=== PATIENT | male | born 1955 | race Caucasian/White ===

== ENCOUNTER 2018-07-22 06:50 | Inpatient (IN) | payer MEDICAID ==
[~2018-07-22] VITALS: Ht 177.8 cm; Wt 101.6 kg
[2018-07-22] MEDS ORDERED: SODIUM CHLORIDE 0.9% 1,000 ML IV ONE (08:53)
[2018-07-22 09:10] LABS: CHLORIDE 102 mEq/L (98-107); HEMATOCRIT. 36.2 % (42.0-52.0); MEAN CORPUSCULAR HEMOGLOBIN 28.9 pg (28.0-32.0); MEAN CORPUSCULAR VOLUME 87.4 fL (80.0-94.0); MEAN PLATELET VOLUME 9.9 fl (7.4-10.4); PLATELET 81 x1000/uL (130-400); RED BLOOD CELL COUNT 4.14 mill/uL (4.7-6.1); RED CELL DISTRIBUTION WIDTH 17.5 % (11.6-14.6)
[2018-07-22 09:13] LABS: INR 1.4; PROTHROMBIN TIME 13.6 sec (9.1-11.1)
[2018-07-22 09:14] LABS: ETHANOL BLOOD < 10 mg/dL
[2018-07-22] MEDS ORDERED: POTASSIUM CHLORIDE INJ 40 MEQ in DEXT 5% WATER 500 ML IV SCH (10:00)
[2018-07-22 10:06] LABS: PLATELET ESTIMATE DECREASED
[2018-07-22 10:12] LABS: CREATINE KINASE 218 IU/L (39-308)
[2018-07-22 10:25] LABS: CLARITY URINE CLEAR (CLEAR); COLOR URINE DARK YELLOW (YELLOW); KETONES URINE NEGATIVE (NEGATIVE); LEUKOCYTE ESTERASE URINE 1+ (NEGATIVE); NITRITE URINE NEGATIVE (NEGATIVE); OCCULT BLOOD URINE 3+ (NEGATIVE); PH URINE 5.5 (4.5-8.0); PROTEIN URINE 1+ (NEGATIVE); SPECIFIC GRAVITY URINE 1.025 (1.005-1.030)
[2018-07-22] MEDS ORDERED: ASPIRIN 81MG TABLET PO ONE (10:30)
[2018-07-22 10:39] LABS: *AMPHETAMINES SCREEN URINE NEGATIVE (NEGATIVE); *BARBITURATES SCREEN URINE NEGATIVE (NEGATIVE); *BENZODIAZEPINES SCREEN URINE NEGATIVE (NEGATIVE); *COCAINE SCREEN URINE NEGATIVE (NEGATIVE); METHADONE URINE SCREEN NEGATIVE (NEGATIVE)
[2018-07-22 10:40] LABS: CANNABINOID URINE SCREEN NEGATIVE (NEGATIVE); OPIATES URINE SCREEN PRESUMTIVE POSITIVE (NEGATIVE); PHENCYCLIDINE URINE SCREEN NEGATIVE (NEGATIVE)
[2018-07-22] MEDS ORDERED: ENOXAPARIN 80MG/0.8ML SYR SUBCUT ONE (10:45)
[2018-07-22] MEDS ORDERED: DIPHENHYDRAMINE 50MG/ML VIAL IV PRN (11:00)
[2018-07-22] MEDS ORDERED: GUAIFENESIN 200MG/10ML SUGAR FREE UDC PO PRN (11:00)
[2018-07-22] MEDS ORDERED: CLONIDINE 0.1MG TABLET PO PRN (11:00)
[2018-07-22] MEDS ORDERED: ONDANSETRON HCL 4MG/2ML INJ IV PRN (11:00)
[2018-07-22] MEDS ORDERED: MAGNESIUM/ALUMINUM HYDROXIDE/SIMETHICONE 30ML UDC PO PRN (11:00)
[2018-07-22 15:07] LABS: CREATINE KINASE MB FRACTION 8.2 ng/mL (0.5-3.6)
[2018-07-22] MEDS ORDERED: ACETAMINOPHEN 650MG SUPP PR NR (15:30)
[2018-07-22] MEDS ORDERED: SODIUM CHLORIDE 0.9% 1,000 ML IV SCH (15:30)
[2018-07-22] MEDS ORDERED: PIPERACILLIN SODIUM/TAZOBACTAM 4.5 G in DEXT 5% WATER 100 ML IV SCH (16:00)
[2018-07-22] MEDS: IPRATROPIUM/ALBUTEROL 0.5-3(2.5)MG/3ML NEB INH PRN (16:05)
[2018-07-22 17:52] LABS: HEPATITIS B SURFACE ANTIGEN NEGATIVE
[2018-07-22 18:22] LABS: HEPATITIS A AB IGM NEGATIVE (NEGATIVE)
[2018-07-22 19:00] LABS: TOTAL IRON BINDING CAPACITY 256 ug/dL (250-450)
[2018-07-22 19:23] LABS: FERRITIN 121 ng/mL (22-322)
[2018-07-22 19:25] LABS: FOLIC ACID (FOLATE) SERUM >20 ng/mL ng/mL (>5.38)
[2018-07-22 19:36] LABS: VITAMIN B12 SERUM 280 pg/mL (211-911)
[2018-07-22] MEDS: MORPHINE SULFATE 4 MG/ML CPJ (NOT FOR IM USE) IV PRN (20:45)
[2018-07-22 22:19] LABS: CREATINE KINASE MB FRACTION 9.6 ng/mL (0.5-3.6)
[2018-07-22 22:20] VITALS: BP 115/49
[2018-07-23] VITALS (62 sets, daily range): BP systolic 66–191; BP diastolic 34–115
[2018-07-23 00:56] LABS: BG BASE EXCESS -12.2 mmol/L (-2.0-2.0); BG CARBOXYHEMOGLOBIN 0.5 % (0.5-1.5); BG DEOXYHEMOGLOBIN 0.4 % (0.0-5.0); BG FRACTION INSPIRED OXYGEN 100; BG HCO3 ACT 13.8 mmol/L (22.0-26.0); BG METHEMOGLOBIN 0.4 % (0.0-1.5); BG OXYGEN SATURATION 99.6 % (92.0-98.5); BG OXYHEMOGLOBIN 98.7 % (94.0-97.0); BG PCO2 32.3 mmHg (35.0-45.0); BG PO2 334.9 mmHg (75.0-100.0); BG SAMPLE SITE LEFT RADIAL; BG TOTAL HEMOGLOBIN 12.9 g/dL (12.0-18.0); BG VENT MODE MASK - SIMPLE
[2018-07-23] MEDS ORDERED: SODIUM BICARBONATE 8.4% 1 MEQ/ML 50ML SYR IV ONE (01:11)
[2018-07-23] MEDS ORDERED: VANCOMYCIN 1500MG in DEXTROSE 5% WATER 250ML IV SCH (02:00)
[2018-07-23 06:56] LABS: CHLORIDE 111 mEq/L (98-107)
[2018-07-23 07:05] LABS: LDL CHOLESTEROL 39 mg/dL (5-100)
[2018-07-23 07:06] LABS: CREATINE KINASE 452 IU/L (39-308); HDL CHOLESTEROL 14 mg/dL (40-59)
[2018-07-23 07:36] LABS: HEMATOCRIT. 36.4 % (42.0-52.0); HEMOGLOBIN. 11.8 g/dL (14.0-18.0); MEAN CORPUSCULAR HEMOGLOBIN 28.8 pg (28.0-32.0); MEAN CORPUSCULAR VOLUME 88.9 fL (80.0-94.0); RED BLOOD CELL COUNT 4.09 mill/uL (4.7-6.1); RED CELL DISTRIBUTION WIDTH 17.4 % (11.6-14.6)
[2018-07-23 07:48] LABS: BG BASE EXCESS -2.9 mmol/L (-2.0-2.0); BG DEOXYHEMOGLOBIN 6.6 % (0.0-5.0); BG FRACTION INSPIRED OXYGEN 32; BG HCO3 ACT 18.1 mmol/L (22.0-26.0); BG METHEMOGLOBIN 0.2 % (0.0-1.5); BG OXYGEN SATURATION 93.4 % (92.0-98.5); BG OXYHEMOGLOBIN 93.2 % (94.0-97.0); BG PH 7.532 (7.350-7.450); BG PO2 62.8 mmHg (75.0-100.0); BG SAMPLE SITE RIGHT BRACHIAL; BG VENT MODE NASAL CANNULA
[2018-07-23] MEDS ORDERED: METOPROLOL TARTRATE 25MG TABLET PO SCH (09:00)
[2018-07-23] MEDS: PROPOFOL 10MG/ML 100ML 100 ML IV PRN ×3 (09:53→20:49)
[2018-07-23] MEDS ORDERED: HYDRALAZINE 20MG/ML VIAL IV PRN (10:00)
[2018-07-23 10:16] LABS: BG BASE EXCESS -7.1 mmol/L (-2.0-2.0); BG CARBOXYHEMOGLOBIN 0.4 % (0.5-1.5); BG DEOXYHEMOGLOBIN 1.8 % (0.0-5.0); BG FRACTION INSPIRED OXYGEN 100; BG HCO3 ACT 19.2 mmol/L (22.0-26.0); BG METHEMOGLOBIN 0.5 % (0.0-1.5); BG OXYGEN SATURATION 98.2 % (92.0-98.5); BG OXYHEMOGLOBIN 97.3 % (94.0-97.0); BG PCO2 41.7 mmHg (35.0-45.0); BG PH 7.281 (7.350-7.450); BG SAMPLE SITE RIGHT BRACHIAL; BG TIDAL VOLUME(mL) 500 mL; BG TOTAL HEMOGLOBIN 12.8 g/dL (12.0-18.0); BG VENT MODE VENT - A/C; BG VENT RATE 14 set
[2018-07-23] MEDS: PANTOPRAZOLE SODIUM 40 MG/VIAL IV SCH (10:34)
[2018-07-23] MEDS: ENOXAPARIN 80MG/0.8ML SYR SUBCUT SCH ×2 (10:35→20:49)
[2018-07-23] MEDS: ASPIRIN 81MG TABLET PO SCH (10:38)
[2018-07-23 10:42] LABS: MEAN PLATELET VOLUME 11.5 fl (7.4-10.4); PLATELET 57 x1000/uL (130-400); PLATELET ESTIMATE DECREASED
[2018-07-23] MEDS: IPRATROPIUM/ALBUTEROL 0.5-3(2.5)MG/3ML NEB HHN SCH ×3 (11:00→21:45)
[2018-07-23] MEDS: PIPERACILLIN/TAZ 3.375G PREMIX 50 ML IV SCH ×2 (11:14→17:21)
[2018-07-23] MEDS: MORPHINE SULFATE 4 MG/ML CPJ (NOT FOR IM USE) IV PRN ×2 (11:38→17:22)
[2018-07-23] MEDS ORDERED: DILTIAZEM HCL 5MG/ML 5ML VIAL IV PRN (12:30)
[2018-07-23] MEDS ORDERED: DILTIAZEM HCL 5MG/ML 5ML VIAL IV SCH (12:41)
[2018-07-23] MEDS ORDERED: LORAZEPAM 2MG/ML CPJ IV PRN (13:00)
[2018-07-23] MEDS ORDERED: VECURONIUM BROMIDE 10 MG/VIAL IV ONE (13:17)
[2018-07-23] MEDS ORDERED: ETOMIDATE 2MG/ML 10ML VIAL IV ONE (13:17)
[2018-07-23] MEDS ORDERED: SODIUM CHLORIDE 0.9% 250 ML IV ONE (14:00)
[2018-07-23] MEDS ORDERED: DILTIAZEM HCL 125 MG in DEXT 5% WATER 100 ML IV PRN (14:15)
[2018-07-23] MEDS: SODIUM CHLORIDE 0.9% 1,000 ML IV SCH (14:21)
[2018-07-23] MEDS: VANCOMYCIN 1250MG in DEXTROSE 5% WATER 250ML IV SCH (14:33)
[2018-07-23] MEDS ORDERED: SODIUM CHLORIDE 0.9% 250 ML IV NR (15:00)
[2018-07-23] MEDS ORDERED: NOREPINEPHRINE 8 MG in DEXT 5% WATER 242 ML IV PRN (15:00)
[2018-07-23] MEDS: LEVETIRACETAM 500 MG in SODIUM CHLORIDE 0.9% 100 ML IV SCH ×2 (16:23→22:32)
[2018-07-23] MEDS: FENTANYL CITRATE/PF 500 MCG in SODIUM CHLORIDE 0.9% 40 ML IV PRN (19:54)
[2018-07-23] MEDS: METOPROLOL TARTRATE 25MG TABLET PO SCH (20:49)
[2018-07-23] MEDS ORDERED: LEVETIRACETAM 500 MG in SODIUM CHLORIDE 0.9% 100 ML IV SCH (21:00)
[2018-07-23] MEDS: NOREPINEPHRINE 32 MG in DEXT 5% WATER 468 ML IV PRN (22:30)
[2018-07-24] VITALS (96 sets, daily range): BP systolic 90–154; BP diastolic 53–92
[2018-07-24] MEDS: IPRATROPIUM/ALBUTEROL 0.5-3(2.5)MG/3ML NEB HHN SCH ×6 (01:15→20:57)
[2018-07-24] MEDS: VANCOMYCIN 1250MG in DEXTROSE 5% WATER 250ML IV SCH ×2 (02:27→15:09)
[2018-07-24] MEDS: PIPERACILLIN/TAZ 3.375G PREMIX 50 ML IV SCH ×2 (02:27→09:23)
[2018-07-24] MEDS: SODIUM CHLORIDE 0.9% 1,000 ML IV SCH ×2 (02:27→14:45)
[2018-07-24] MEDS: PROPOFOL 10MG/ML 100ML 100 ML IV PRN (02:31)
[2018-07-24 07:11] LABS: HEMATOCRIT. 32.7 % (42.0-52.0); HEMOGLOBIN. 10.6 g/dL (14.0-18.0); MEAN CORPUSCULAR HEMOGLOBIN 28.7 pg (28.0-32.0); MEAN CORPUSCULAR VOLUME 88.6 fL (80.0-94.0); RED CELL DISTRIBUTION WIDTH 17.6 % (11.6-14.6)
[2018-07-24 07:17] LABS: CHLORIDE 114 mEq/L (98-107)
[2018-07-24] MEDS ORDERED: LIDOCAINE HCL 1% 20ML VIAL (Pyxis) INJ ONE (07:19)
[2018-07-24 07:33] LABS: MEAN PLATELET VOLUME 11.5 fl (7.4-10.4); PLATELET 57 x1000/uL (130-400); PLATELET ESTIMATE DECREASED
[2018-07-24 07:50] LABS: BG BASE EXCESS -3.4 mmol/L (-2.0-2.0); BG DEOXYHEMOGLOBIN 0.8 % (0.0-5.0); BG FRACTION INSPIRED OXYGEN 60; BG METHEMOGLOBIN 0.3 % (0.0-1.5); BG OXYGEN SATURATION 99.2 % (92.0-98.5); BG OXYHEMOGLOBIN 98.9 % (94.0-97.0); BG PCO2 26.5 mmHg (35.0-45.0); BG PH 7.473 (7.350-7.450); BG PO2 183.5 mmHg (75.0-100.0); BG SAMPLE SITE RIGHT BRACHIAL; BG TIDAL VOLUME(mL) 500 mL; BG TOTAL HEMOGLOBIN 11.7 g/dL (12.0-18.0); BG VENT MODE VENT - A/C; BG VENT RATE 14 set
[2018-07-24] MEDS: ASPIRIN 81MG TABLET PO SCH (09:00)
[2018-07-24] MEDS: METOPROLOL TARTRATE 25MG TABLET PO SCH ×2 (09:00→21:00)
[2018-07-24] MEDS: ENOXAPARIN 80MG/0.8ML SYR SUBCUT SCH ×2 (09:00→21:00)
[2018-07-24] MEDS: PANTOPRAZOLE SODIUM 40 MG/VIAL IV SCH (09:21)
[2018-07-24] MEDS: LEVETIRACETAM 500 MG in SODIUM CHLORIDE 0.9% 100 ML IV SCH ×2 (09:23→22:05)
[2018-07-24] MEDS: THIAMINE HCL 100MG TABLET PO SCH ×2 (09:23→17:28)
[2018-07-24] MEDS: AMIODARONE HCL 200 MG TABLET PO SCH ×2 (10:26→22:05)
[2018-07-24] MEDS ORDERED: PROPOFOL 10MG/ML 100ML 100 ML IV PRN (10:45)
[2018-07-24] MEDS: FENTANYL CITRATE/PF 500 MCG in SODIUM CHLORIDE 0.9% 40 ML IV PRN ×2 (13:00→23:43)
[2018-07-24] MEDS: MIDAZOLAM HCL 50 MG in DEXTROSE 5% WATER 40 ML IV PRN ×3 (13:26→23:02)
[2018-07-24] MEDS ORDERED: AMIODARONE HCL 150 MG in DEXT 5% WATER 100 ML IV NR (17:00)
[2018-07-24] MEDS ORDERED: AMIODARONE HCL 900 MG in DEXT 5% WATER 482 ML IV PRN (17:15)
[2018-07-24] MEDS: CEFAZOLIN 2,000 MG in DEXT 5% WATER 100 ML IV SCH (17:18)
[2018-07-25] VITALS (95 sets, daily range): BP systolic 91–153; BP diastolic 42–100
[2018-07-25] MEDS: IPRATROPIUM/ALBUTEROL 0.5-3(2.5)MG/3ML NEB HHN SCH ×5 (00:34→20:13)
[2018-07-25] MEDS: CEFAZOLIN 2,000 MG in DEXT 5% WATER 100 ML IV SCH ×3 (01:07→17:36)
[2018-07-25] MEDS: NOREPINEPHRINE 32 MG in DEXT 5% WATER 468 ML IV PRN (02:57)
[2018-07-25] MEDS: MIDAZOLAM HCL 50 MG in DEXTROSE 5% WATER 40 ML IV PRN ×2 (04:28→11:02)
[2018-07-25 04:38] LABS: BG BASE EXCESS -5.3 mmol/L (-2.0-2.0); BG CARBOXYHEMOGLOBIN 0.3 % (0.5-1.5); BG DEOXYHEMOGLOBIN 2.9 % (0.0-5.0); BG FRACTION INSPIRED OXYGEN 60; BG HCO3 ACT 16.8 mmol/L (22.0-26.0); BG METHEMOGLOBIN 0.3 % (0.0-1.5); BG OXYGEN SATURATION 97.1 % (92.0-98.5); BG OXYHEMOGLOBIN 96.5 % (94.0-97.0); BG PCO2 24.8 mmHg (35.0-45.0); BG PEEP (cmH2O) 0 cmH2O; BG PIP 18 cmH2O; BG SAMPLE SITE LEFT RADIAL; BG TIDAL VOLUME(mL) 500 mL; BG TOTAL HEMOGLOBIN 13.8 g/dL (12.0-18.0); BG VENT MODE VENT - A/C; BG VENT RATE 14 set
[2018-07-25] MEDS: SODIUM CHLORIDE 0.9% 1,000 ML IV SCH (05:08)
[2018-07-25 06:19] LABS: HEMATOCRIT. 33.9 % (42.0-52.0); MEAN CORPUSCULAR HEMOGLOBIN 28.6 pg (28.0-32.0); MEAN CORPUSCULAR VOLUME 88.3 fL (80.0-94.0); RED BLOOD CELL COUNT 3.84 mill/uL (4.7-6.1); RED CELL DISTRIBUTION WIDTH 17.6 % (11.6-14.6)
[2018-07-25 06:32] LABS: CHLORIDE 113 mEq/L (98-107)
[2018-07-25 08:14] LABS: HIV SCREEN 4G Non Reactive (Non Reactive)
[2018-07-25] MEDS: LEVETIRACETAM 500 MG in SODIUM CHLORIDE 0.9% 100 ML IV SCH ×2 (08:48→21:36)
[2018-07-25] MEDS: PANTOPRAZOLE SODIUM 40 MG/VIAL IV SCH (08:48)
[2018-07-25] MEDS: THIAMINE HCL 100MG TABLET PO SCH ×2 (08:49→17:36)
[2018-07-25] MEDS: ENOXAPARIN 80MG/0.8ML SYR SUBCUT SCH (08:49)
[2018-07-25] MEDS: AMIODARONE HCL 200 MG TABLET PO SCH ×2 (08:49→21:36)
[2018-07-25] MEDS: METOPROLOL TARTRATE 25MG TABLET PO SCH ×2 (08:49→21:00)
[2018-07-25] MEDS: ASPIRIN 81MG TABLET PO SCH (08:49)
[2018-07-25] MEDS ORDERED: DEXTROSE 50% WATER 50ML SYRINGE IV PRN (09:45)
[2018-07-25] MEDS ORDERED: BLOOD SUGAR DIAGNOSTIC STRIP TEST SCH (09:45)
[2018-07-25] MEDS: FENTANYL CITRATE/PF 500 MCG in SODIUM CHLORIDE 0.9% 40 ML IV PRN (09:57)
[2018-07-25 10:01] LABS: MEAN PLATELET VOLUME 11.9 fl (7.4-10.4); PLATELET 65 x1000/uL (130-400); PLATELET ESTIMATE DECREASED
[2018-07-25] MEDS: INSULIN LISPRO 100 UNITS/ML SUBCUT SCH ×2 (12:00→17:49)
[2018-07-25] MEDS: BLOOD SUGAR DIAGNOSTIC STRIP TEST SCH ×2 (12:00→17:26)
[2018-07-25] MEDS ORDERED: INSULIN LISPRO 100 UNITS/ML SUBCUT SCH (13:20)
[2018-07-25] MEDS ORDERED: GADOBENATE DIMEGLUMINE 529 MG/ML 10ML IV ONE (13:59)
[2018-07-26] VITALS (76 sets, daily range): BP systolic 87–130; BP diastolic 52–80
[2018-07-26] MEDS: IPRATROPIUM/ALBUTEROL 0.5-3(2.5)MG/3ML NEB HHN SCH ×6 (00:07→20:21)
[2018-07-26] MEDS: CEFAZOLIN 2,000 MG in DEXT 5% WATER 100 ML IV SCH ×3 (01:22→16:32)
[2018-07-26] MEDS: SODIUM CHLORIDE 0.9% 1,000 ML IV SCH (04:27)
[2018-07-26] MEDS: FENTANYL CITRATE/PF 500 MCG in SODIUM CHLORIDE 0.9% 40 ML IV PRN ×3 (04:30→20:56)
[2018-07-26] MEDS: MIDAZOLAM HCL 50 MG in DEXTROSE 5% WATER 40 ML IV PRN ×3 (04:31→20:57)
[2018-07-26] MEDS: ACETAMINOPHEN 650MG SUPP PR PRN (05:08)
[2018-07-26] MEDS: DILTIAZEM HCL 5MG/ML 5ML VIAL IV PRN (05:20)
[2018-07-26] MEDS: BLOOD SUGAR DIAGNOSTIC STRIP TEST SCH ×4 (06:00→18:18)
[2018-07-26 06:02] LABS: HEMATOCRIT. 33.1 % (42.0-52.0); HEMOGLOBIN. 10.8 g/dL (14.0-18.0); MEAN CORPUSCULAR HEMOGLOBIN 29.1 pg (28.0-32.0); MEAN CORPUSCULAR VOLUME 88.9 fL (80.0-94.0); RED BLOOD CELL COUNT 3.73 mill/uL (4.7-6.1); RED CELL DISTRIBUTION WIDTH 17.3 % (11.6-14.6)
[2018-07-26 06:16] LABS: CHLORIDE 115 mEq/L (98-107)
[2018-07-26 06:50] LABS: BG BASE EXCESS -3.1 mmol/L (-2.0-2.0); BG CARBOXYHEMOGLOBIN 0.3 % (0.5-1.5); BG DEOXYHEMOGLOBIN 5.1 % (0.0-5.0); BG FRACTION INSPIRED OXYGEN 100; BG METHEMOGLOBIN 0.2 % (0.0-1.5); BG OXYGEN SATURATION 94.9 % (92.0-98.5); BG OXYHEMOGLOBIN 94.4 % (94.0-97.0); BG PCO2 29.2 mmHg (35.0-45.0); BG PH 7.453 (7.350-7.450); BG PO2 76.1 mmHg (75.0-100.0); BG SAMPLE SITE RIGHT RADIAL; BG TIDAL VOLUME(mL) 500 mL; BG TOTAL HEMOGLOBIN 10.6 g/dL (12.0-18.0); BG VENT MODE VENT - A/C; BG VENT RATE 14 set
[2018-07-26] MEDS: INSULIN LISPRO 100 UNITS/ML SUBCUT SCH ×4 (07:56→18:00)
[2018-07-26] MEDS: METOPROLOL TARTRATE 25MG TABLET PO SCH ×2 (08:35→20:58)
[2018-07-26] MEDS: LEVETIRACETAM 500 MG in SODIUM CHLORIDE 0.9% 100 ML IV SCH ×2 (09:27→21:00)
[2018-07-26] MEDS: PANTOPRAZOLE SODIUM 40 MG/VIAL IV SCH (09:27)
[2018-07-26] MEDS: THIAMINE HCL 100MG TABLET PO SCH ×2 (09:28→16:32)
[2018-07-26] MEDS: AMIODARONE HCL 200 MG TABLET PO SCH ×2 (09:28→21:09)
[2018-07-26 09:48] LABS: PLATELET ESTIMATE DECREASED
[2018-07-26] MEDS ORDERED: KCL 20MEQ/100ML PREMIX 100 ML IV SCH (10:15)
[2018-07-26] MEDS: LORAZEPAM 2MG/ML CPJ IV PRN ×2 (11:16→14:13)
[2018-07-26 13:14] LABS: BG BASE EXCESS -3.9 mmol/L (-2.0-2.0); BG DEOXYHEMOGLOBIN 4.6 % (0.0-5.0); BG FRACTION INSPIRED OXYGEN 100; BG HCO3 ACT 19.3 mmol/L (22.0-26.0); BG METHEMOGLOBIN 0.4 % (0.0-1.5); BG OXYGEN SATURATION 95.4 % (92.0-98.5); BG PCO2 29.1 mmHg (35.0-45.0); BG PO2 80.6 mmHg (75.0-100.0); BG PRESSURE SUPPORT 12; BG SAMPLE SITE RIGHT RADIAL; BG TIDAL VOLUME(mL) 500 mL; BG TOTAL HEMOGLOBIN 10.3 g/dL (12.0-18.0); BG VENT MODE VENT - SIMV; BG VENT RATE 12 set
[2018-07-26] MEDS: MORPHINE SULFATE 4 MG/ML CPJ (NOT FOR IM USE) IV PRN (15:07)
[2018-07-26 15:20] LABS: PLATELET 53 x1000/uL (130-400)
[2018-07-27] VITALS (94 sets, daily range): BP systolic 88–137; BP diastolic 35–79
[2018-07-27] MEDS: IPRATROPIUM/ALBUTEROL 0.5-3(2.5)MG/3ML NEB HHN SCH ×6 (00:12→20:10)
[2018-07-27] MEDS: BLOOD SUGAR DIAGNOSTIC STRIP TEST SCH ×4 (00:27→17:51)
[2018-07-27] MEDS: CEFAZOLIN 2,000 MG in DEXT 5% WATER 100 ML IV SCH ×3 (01:10→17:44)
[2018-07-27] MEDS: FENTANYL CITRATE/PF 500 MCG in SODIUM CHLORIDE 0.9% 40 ML IV PRN ×2 (02:19→09:14)
[2018-07-27] MEDS: MIDAZOLAM HCL 50 MG in DEXTROSE 5% WATER 40 ML IV PRN ×3 (02:19→16:36)
[2018-07-27] MEDS: SODIUM CHLORIDE 0.9% 1,000 ML IV SCH (05:23)
[2018-07-27] MEDS: INSULIN LISPRO 100 UNITS/ML SUBCUT SCH ×4 (05:41→17:59)
[2018-07-27 05:52] LABS: HEMATOCRIT. 36.1 % (42.0-52.0); HEMOGLOBIN. 11.4 g/dL (14.0-18.0); MEAN CORPUSCULAR HEMOGLOBIN 28.6 pg (28.0-32.0); MEAN CORPUSCULAR VOLUME 90.7 fL (80.0-94.0); MEAN PLATELET VOLUME 12.1 fl (7.4-10.4); PLATELET 64 x1000/uL (130-400); RED BLOOD CELL COUNT 3.97 mill/uL (4.7-6.1); RED CELL DISTRIBUTION WIDTH 18.1 % (11.6-14.6)
[2018-07-27 05:53] LABS: CHLORIDE 116 mEq/L (98-107)
[2018-07-27 05:58] LABS: INR 1.3; PROTHROMBIN TIME 12.7 sec (9.1-11.1)
[2018-07-27 06:20] LABS: PHOSPHORUS 4.4 mg/dL (2.5-4.9)
[2018-07-27 08:02] LABS: BG BASE EXCESS -10.8 mmol/L (-2.0-2.0); BG CARBOXYHEMOGLOBIN 0.4 % (0.5-1.5); BG DEOXYHEMOGLOBIN 41.5 % (0.0-5.0); BG HCO3 ACT 18.7 mmol/L (22.0-26.0); BG METHEMOGLOBIN 0.1 % (0.0-1.5); BG OXYGEN SATURATION 58.3 % (92.0-98.5); BG PCO2 58.1 mmHg (35.0-45.0); BG PH 7.126 (7.350-7.450); BG PO2 39.4 mmHg (75.0-100.0); BG SAMPLE SITE RIGHT RADIAL; BG TIDAL VOLUME(mL) 500 mL; BG TOTAL HEMOGLOBIN 12.5 g/dL (12.0-18.0); BG VENT MODE VENT - A/C; BG VENT RATE 14 set
[2018-07-27 08:30] LABS: BG BASE EXCESS -7.4 mmol/L (-2.0-2.0); BG CARBOXYHEMOGLOBIN 0.1 % (0.5-1.5); BG DEOXYHEMOGLOBIN 17.6 % (0.0-5.0); BG HCO3 ACT 22.3 mmol/L (22.0-26.0); BG METHEMOGLOBIN 0.3 % (0.0-1.5); BG OXYGEN SATURATION 82.3 % (92.0-98.5); BG PCO2 66.5 mmHg (35.0-45.0); BG PH 7.144 (7.350-7.450); BG PO2 57.8 mmHg (75.0-100.0); BG SAMPLE SITE RIGHT RADIAL; BG TIDAL VOLUME(mL) 500 mL; BG TOTAL HEMOGLOBIN 12.1 g/dL (12.0-18.0); BG VENT MODE VENT - A/C; BG VENT RATE 28 set
[2018-07-27] MEDS ORDERED: FUROSEMIDE 40MG/4ML VIAL IVP SCH (08:30)
[2018-07-27] MEDS: MORPHINE SULFATE 4 MG/ML CPJ (NOT FOR IM USE) IV PRN (08:41)
[2018-07-27] MEDS: THIAMINE HCL 100MG TABLET PO SCH ×2 (08:43→17:44)
[2018-07-27] MEDS: AMIODARONE HCL 200 MG TABLET PO SCH ×2 (08:43→20:32)
[2018-07-27] MEDS: LEVETIRACETAM 500 MG in SODIUM CHLORIDE 0.9% 100 ML IV SCH ×2 (08:43→20:33)
[2018-07-27] MEDS: PANTOPRAZOLE SODIUM 40 MG/VIAL IV SCH (08:43)
[2018-07-27] MEDS: METOPROLOL TARTRATE 25MG TABLET PO SCH ×2 (08:44→20:37)
[2018-07-27] MEDS: LORAZEPAM 2MG/ML CPJ IV PRN (09:39)
[2018-07-27 10:10] LABS: BG BASE EXCESS -7.8 mmol/L (-2.0-2.0); BG CARBOXYHEMOGLOBIN 0.5 % (0.5-1.5); BG DEOXYHEMOGLOBIN 12.3 % (0.0-5.0); BG METHEMOGLOBIN 0.1 % (0.0-1.5); BG OXYGEN SATURATION 87.6 % (92.0-98.5); BG OXYHEMOGLOBIN 87.1 % (94.0-97.0); BG PCO2 66.6 mmHg (35.0-45.0); BG PH 7.137 (7.350-7.450); BG PO2 67.9 mmHg (75.0-100.0); BG SAMPLE SITE RIGHT RADIAL; BG TIDAL VOLUME(mL) 500 mL; BG VENT MODE VENT - A/C; BG VENT RATE 30 set
[2018-07-27] MEDS ORDERED: SODIUM BICARBONATE 8.4% 1 MEQ/ML 50ML SYR IV SCH (10:45)
[2018-07-27] MEDS ORDERED: BUMETANIDE 1MG/4ML VIAL IV SCH (11:00)
[2018-07-27 11:57] LABS: PLATELET ESTIMATE DECREASED
[2018-07-27] MEDS: NOREPINEPHRINE 32 MG in DEXT 5% WATER 468 ML IV PRN (12:52)
[2018-07-27 13:13] LABS: BG BASE EXCESS -5.9 mmol/L (-2.0-2.0); BG CARBOXYHEMOGLOBIN 0.3 % (0.5-1.5); BG DEOXYHEMOGLOBIN 8.3 % (0.0-5.0); BG FRACTION INSPIRED OXYGEN 100; BG HCO3 ACT 24.1 mmol/L (22.0-26.0); BG METHEMOGLOBIN 0.3 % (0.0-1.5); BG OXYGEN SATURATION 91.6 % (92.0-98.5); BG OXYHEMOGLOBIN 91.1 % (94.0-97.0); BG PCO2 71.9 mmHg (35.0-45.0); BG PH 7.144 (7.350-7.450); BG PO2 75.5 mmHg (75.0-100.0); BG SAMPLE SITE RIGHT RADIAL; BG TIDAL VOLUME(mL) 500 mL; BG TOTAL HEMOGLOBIN 12.1 g/dL (12.0-18.0); BG VENT MODE VENT - A/C; BG VENT RATE 30 set
[2018-07-27 15:57] LABS: BG BASE EXCESS -5.9 mmol/L (-2.0-2.0); BG CARBOXYHEMOGLOBIN 0.2 % (0.5-1.5); BG DEOXYHEMOGLOBIN 6.9 % (0.0-5.0); BG HCO3 ACT 25.4 mmol/L (22.0-26.0); BG METHEMOGLOBIN 0.3 % (0.0-1.5); BG OXYGEN SATURATION 93.1 % (92.0-98.5); BG OXYHEMOGLOBIN 92.6 % (94.0-97.0); BG PCO2 85.4 mmHg (35.0-45.0); BG PH 7.092 (7.350-7.450); BG SAMPLE SITE RIGHT RADIAL; BG TIDAL VOLUME(mL) 500 mL; BG TOTAL HEMOGLOBIN 12.3 g/dL (12.0-18.0); BG VENT MODE VENT - A/C; BG VENT RATE 30 set
[2018-07-27] MEDS ORDERED: SODIUM BICARBONATE 8.4% 1 MEQ/ML 50ML SYR IV NR ×2 (16:15→22:15)
[2018-07-27] MEDS ORDERED: FENTANYL CITRATE/PF 1,000 MCG in SODIUM CHLORIDE 0.9% 80 ML IV PRN (18:00)
[2018-07-27 18:14] LABS: BG BASE EXCESS -1.9 mmol/L (-2.0-2.0); BG CARBOXYHEMOGLOBIN 0.2 % (0.5-1.5); BG DEOXYHEMOGLOBIN 6.2 % (0.0-5.0); BG HCO3 ACT 28.8 mmol/L (22.0-26.0); BG METHEMOGLOBIN 0.3 % (0.0-1.5); BG OXYGEN SATURATION 93.8 % (92.0-98.5); BG OXYHEMOGLOBIN 93.3 % (94.0-97.0); BG PCO2 84.6 mmHg (35.0-45.0); BG SAMPLE SITE RIGHT RADIAL; BG TIDAL VOLUME(mL) 500 mL; BG TOTAL HEMOGLOBIN 12.1 g/dL (12.0-18.0); BG VENT MODE VENT - A/C
[2018-07-27] MEDS: BUMETANIDE 2.5MG/10ML VIAL IV SCH (18:17)
[2018-07-27] MEDS: ACETAMINOPHEN 650MG SUPP PR PRN (18:28)
[2018-07-27] MEDS: FENTANYL CITRATE/PF 1,000 MCG in SODIUM CHLORIDE 0.9% 80 ML IV PRN (20:35)
[2018-07-27] MEDS: MIDAZOLAM HCL 100 MG in DEXT 5% WATER 80 ML IV PRN (20:36)
[2018-07-27 21:27] LABS: BG BASE EXCESS -3.3 mmol/L (-2.0-2.0); BG DEOXYHEMOGLOBIN 6.7 % (0.0-5.0); BG FRACTION INSPIRED OXYGEN 100; BG HCO3 ACT 26.7 mmol/L (22.0-26.0); BG METHEMOGLOBIN 0.3 % (0.0-1.5); BG OXYGEN SATURATION 93.3 % (92.0-98.5); BG PCO2 76.8 mmHg (35.0-45.0); BG PH 7.159 (7.350-7.450); BG PO2 78.2 mmHg (75.0-100.0); BG SAMPLE SITE RIGHT RADIAL; BG TIDAL VOLUME(mL) 500 mL; BG TOTAL HEMOGLOBIN 11.7 g/dL (12.0-18.0); BG VENT MODE VENT - A/C; BG VENT RATE 34 set
[2018-07-28] VITALS (94 sets, daily range): BP systolic 96–127; BP diastolic 42–76
[2018-07-28] MEDS: IPRATROPIUM/ALBUTEROL 0.5-3(2.5)MG/3ML NEB HHN SCH ×6 (00:16→20:28)
[2018-07-28] MEDS: CEFAZOLIN 2,000 MG in DEXT 5% WATER 100 ML IV SCH ×3 (00:28→16:56)
[2018-07-28] MEDS: BUMETANIDE 2.5MG/10ML VIAL IV SCH ×3 (02:14→16:56)
[2018-07-28 05:36] LABS: HEMATOCRIT. 33.4 % (42.0-52.0); HEMOGLOBIN. 10.6 g/dL (14.0-18.0); MEAN CORPUSCULAR HEMOGLOBIN 28.8 pg (28.0-32.0); MEAN CORPUSCULAR VOLUME 90.4 fL (80.0-94.0); MEAN PLATELET VOLUME 10.5 fl (7.4-10.4); PLATELET 96 x1000/uL (130-400); RED BLOOD CELL COUNT 3.69 mill/uL (4.7-6.1); RED CELL DISTRIBUTION WIDTH 18.1 % (11.6-14.6)
[2018-07-28] MEDS: INSULIN LISPRO 100 UNITS/ML SUBCUT SCH ×4 (06:00→17:24)
[2018-07-28] MEDS: BLOOD SUGAR DIAGNOSTIC STRIP TEST SCH ×4 (06:00→17:23)
[2018-07-28 06:58] LABS: PLATELET ESTIMATE SLIGHTLY DECREASED
[2018-07-28] MEDS: MIDAZOLAM HCL 100 MG in DEXT 5% WATER 80 ML IV PRN ×2 (07:49→20:19)
[2018-07-28] MEDS: FENTANYL CITRATE/PF 1,000 MCG in SODIUM CHLORIDE 0.9% 80 ML IV PRN ×2 (08:22→17:21)
[2018-07-28] MEDS: LEVETIRACETAM 500 MG in SODIUM CHLORIDE 0.9% 100 ML IV SCH ×2 (08:32→20:40)
[2018-07-28] MEDS: PANTOPRAZOLE SODIUM 40 MG/VIAL IV SCH (08:32)
[2018-07-28] MEDS: THIAMINE HCL 100MG TABLET PO SCH ×2 (08:32→16:58)
[2018-07-28] MEDS: AMIODARONE HCL 200 MG TABLET PO SCH ×2 (08:32→20:40)
[2018-07-28] MEDS: METOPROLOL TARTRATE 25MG TABLET PO SCH ×2 (08:33→21:00)
[2018-07-28 08:49] LABS: BG BASE EXCESS 0.4 mmol/L (-2.0-2.0); BG CARBOXYHEMOGLOBIN 0.3 % (0.5-1.5); BG DEOXYHEMOGLOBIN 0.8 % (0.0-5.0); BG FRACTION INSPIRED OXYGEN 100; BG HCO3 ACT 28.8 mmol/L (22.0-26.0); BG METHEMOGLOBIN 0.3 % (0.0-1.5); BG OXYGEN SATURATION 99.2 % (92.0-98.5); BG OXYHEMOGLOBIN 98.6 % (94.0-97.0); BG PCO2 66.8 mmHg (35.0-45.0); BG PH 7.253 (7.350-7.450); BG SAMPLE SITE RIGHT RADIAL; BG TIDAL VOLUME(mL) 500 mL; BG TOTAL HEMOGLOBIN 11.6 g/dL (12.0-18.0); BG VENT MODE VENT - A/C; BG VENT RATE 34 set
[2018-07-28] MEDS: NOREPINEPHRINE 32 MG in DEXT 5% WATER 468 ML IV PRN (08:55)
[2018-07-28] MEDS: ACETAMINOPHEN 325MG TABLET PO PRN (16:56)
[2018-07-29] VITALS (95 sets, daily range): BP systolic 91–137; BP diastolic 34–71
[2018-07-29] MEDS: IPRATROPIUM/ALBUTEROL 0.5-3(2.5)MG/3ML NEB HHN SCH ×3 (00:04→07:34)
[2018-07-29] MEDS: BUMETANIDE 2.5MG/10ML VIAL IV SCH ×3 (01:36→17:52)
[2018-07-29] MEDS: CEFAZOLIN 2,000 MG in DEXT 5% WATER 100 ML IV SCH ×2 (01:37→10:32)
[2018-07-29] MEDS: DILTIAZEM HCL 5MG/ML 5ML VIAL IV PRN ×2 (01:54→15:39)
[2018-07-29] MEDS: FENTANYL CITRATE/PF 1,000 MCG in SODIUM CHLORIDE 0.9% 80 ML IV PRN ×2 (03:43→18:02)
[2018-07-29 05:59] LABS: BASOPHILS % 0.2 % (0.0-2.0); EOSINOPHILS % 0.1 % (0.0-5.0); HEMATOCRIT. 30.8 % (42.0-52.0); HEMOGLOBIN. 9.8 g/dL (14.0-18.0); LYMPHOCYTES % 7.7 % (20.0-50.0); MEAN CORPUSCULAR HEMOGLOBIN 28.7 pg (28.0-32.0); MEAN CORPUSCULAR VOLUME 90.4 fL (80.0-94.0); MEAN PLATELET VOLUME 10.3 fl (7.4-10.4); MONOCYTES % 3.8 % (2.0-8.0); NEUTROPHILS % 88.2 % (40.0-76.0); PLATELET 120 x1000/uL (130-400); RED BLOOD CELL COUNT 3.41 mill/uL (4.7-6.1); RED CELL DISTRIBUTION WIDTH 17.3 % (11.6-14.6)
[2018-07-29] MEDS: INSULIN LISPRO 100 UNITS/ML SUBCUT SCH ×4 (06:00→18:00)
[2018-07-29] MEDS: BLOOD SUGAR DIAGNOSTIC STRIP TEST SCH ×4 (06:00→17:52)
[2018-07-29 07:29] LABS: BG BASE EXCESS 2.9 mmol/L (-2.0-2.0); BG CARBOXYHEMOGLOBIN 0.3 % (0.5-1.5); BG DEOXYHEMOGLOBIN 0.6 % (0.0-5.0); BG FRACTION INSPIRED OXYGEN 80; BG HCO3 ACT 28.9 mmol/L (22.0-26.0); BG METHEMOGLOBIN 0.1 % (0.0-1.5); BG OXYGEN SATURATION 99.4 % (92.0-98.5); BG PCO2 51.1 mmHg (35.0-45.0); BG PO2 261.8 mmHg (75.0-100.0); BG SAMPLE SITE RIGHT RADIAL; BG TIDAL VOLUME(mL) 500 mL; BG TOTAL HEMOGLOBIN 10.2 g/dL (12.0-18.0); BG VENT MODE VENT - A/C; BG VENT RATE 34 set
[2018-07-29] MEDS: METOPROLOL TARTRATE 25MG TABLET PO SCH ×2 (08:24→21:00)
[2018-07-29] MEDS: MIDAZOLAM HCL 100 MG in DEXT 5% WATER 80 ML IV PRN (09:04)
[2018-07-29] MEDS: AMIODARONE HCL 200 MG TABLET PO SCH ×2 (09:06→21:35)
[2018-07-29] MEDS: PANTOPRAZOLE SODIUM 40 MG/VIAL IV SCH (09:06)
[2018-07-29] MEDS: THIAMINE HCL 100MG TABLET PO SCH ×2 (09:06→17:52)
[2018-07-29] MEDS: ACETAMINOPHEN 325MG TABLET PO PRN (09:06)
[2018-07-29] MEDS: LEVETIRACETAM 500 MG in SODIUM CHLORIDE 0.9% 100 ML IV SCH ×2 (09:07→21:35)
[2018-07-29] MEDS: IPRATROPIUM BROMIDE (0.02%) 0.5MG/2.5ML NEB HHN SCH ×4 (11:18→23:41)
[2018-07-29 15:01] LABS: CLARITY URINE CLOUDY (CLEAR); COLOR URINE YELLOW (YELLOW); KETONES URINE NEGATIVE (NEGATIVE); LEUKOCYTE ESTERASE URINE 1+ (NEGATIVE); NITRITE URINE NEGATIVE (NEGATIVE); OCCULT BLOOD URINE 2+ (NEGATIVE); PROTEIN URINE 1+ (NEGATIVE); SPECIFIC GRAVITY URINE 1.014 (1.005-1.030); UROBILINOGEN URINE 0.2 E.U./dL (0.2-1.0)
[2018-07-29] MEDS ORDERED: VANCOMYCIN 1250MG in DEXTROSE 5% WATER 250ML IV SCH (16:00)
[2018-07-29] MEDS: MEROPENEM 1,000 MG in SODIUM CHLORIDE 0.9% 100 ML IV SCH (16:38)
[2018-07-29] MEDS: NOREPINEPHRINE 32 MG in DEXT 5% WATER 468 ML IV PRN (16:46)
[2018-07-30] VITALS (100 sets, daily range): BP systolic 81–137; BP diastolic 36–74
[2018-07-30] MEDS: MIDAZOLAM HCL 100 MG in DEXT 5% WATER 80 ML IV PRN ×3 (00:25→22:38)
[2018-07-30] MEDS: ACETAMINOPHEN 325MG TABLET PO PRN ×3 (00:26→22:29)
[2018-07-30] MEDS: BLOOD SUGAR DIAGNOSTIC STRIP TEST SCH ×4 (00:26→17:30)
[2018-07-30] MEDS: BUMETANIDE 2.5MG/10ML VIAL IV SCH ×3 (02:57→17:29)
[2018-07-30] MEDS: MEROPENEM 1,000 MG in SODIUM CHLORIDE 0.9% 100 ML IV SCH ×2 (02:57→15:54)
[2018-07-30] MEDS: IPRATROPIUM BROMIDE (0.02%) 0.5MG/2.5ML NEB HHN SCH ×5 (03:55→19:57)
[2018-07-30] MEDS: FENTANYL CITRATE/PF 1,000 MCG in SODIUM CHLORIDE 0.9% 80 ML IV PRN ×2 (05:34→14:26)
[2018-07-30] MEDS: DOCUSATE SODIUM 100MG CAPSULE PO PRN (05:57)
[2018-07-30] MEDS: INSULIN LISPRO 100 UNITS/ML SUBCUT SCH ×4 (05:58→17:30)
[2018-07-30] MEDS: PANTOPRAZOLE SODIUM 40 MG/VIAL IV SCH (08:38)
[2018-07-30] MEDS: AMIODARONE HCL 200 MG TABLET PO SCH ×3 (08:39→21:18)
[2018-07-30] MEDS: THIAMINE HCL 100MG TABLET PO SCH ×2 (08:39→17:29)
[2018-07-30] MEDS: LEVETIRACETAM 500 MG in SODIUM CHLORIDE 0.9% 100 ML IV SCH ×2 (08:39→21:19)
[2018-07-30 09:11] LABS: BG BASE EXCESS 6.1 mmol/L (-2.0-2.0); BG CARBOXYHEMOGLOBIN 0.3 % (0.5-1.5); BG DEOXYHEMOGLOBIN 1.2 % (0.0-5.0); BG FRACTION INSPIRED OXYGEN 40; BG HCO3 ACT 30.3 mmol/L (22.0-26.0); BG METHEMOGLOBIN 0.3 % (0.0-1.5); BG OXYGEN SATURATION 98.8 % (92.0-98.5); BG OXYHEMOGLOBIN 98.2 % (94.0-97.0); BG PCO2 42.2 mmHg (35.0-45.0); BG PH 7.474 (7.350-7.450); BG PO2 151.2 mmHg (75.0-100.0); BG SAMPLE SITE RIGHT RADIAL; BG TIDAL VOLUME(mL) 500 mL; BG TOTAL HEMOGLOBIN 10.6 g/dL (12.0-18.0); BG VENT MODE VENT - A/C; BG VENT RATE 34 set
[2018-07-30] MEDS: METOPROLOL TARTRATE 25MG TABLET PO SCH ×2 (10:26→21:18)
[2018-07-30 12:26] LABS: HEMOGLOBIN 9.8 g/dL (14.0-18.0); MEAN CORPUSCULAR HEMOGLOBIN 28.6 pg (28.0-32.0); MEAN CORPUSCULAR VOLUME 90.6 fL (80.0-94.0); PLATELET 133 x1000/uL (130-400); RED BLOOD CELL COUNT 3.42 mill/uL (4.7-6.1); RED CELL DISTRIBUTION WIDTH 16.9 % (11.6-14.6)
[2018-07-30 12:47] LABS: CHLORIDE 114 mEq/L (98-107)
[2018-07-30] MEDS ORDERED: BISACODYL 10MG SUPP PR PRN (15:15)
[2018-07-30] MEDS: DOCUSATE SODIUM SUGAR FREE 100MG/10ML UDC NG SCH (15:57)
[2018-07-30] MEDS: VANCOMYCIN 1,000 MG in DEXT 5% WATER 250 ML IV SCH (16:32)
[2018-07-30] MEDS: NOREPINEPHRINE 32 MG in DEXT 5% WATER 468 ML IV PRN (21:20)
[2018-07-30] MEDS: CLONAZEPAM 0.5MG TABLET PO SCH (22:28)
[2018-07-31] VITALS (104 sets, daily range): BP systolic 74–125; BP diastolic 31–58
[2018-07-31] MEDS: IPRATROPIUM BROMIDE (0.02%) 0.5MG/2.5ML NEB HHN SCH ×6 (00:03→20:38)
[2018-07-31] MEDS: BUMETANIDE 2.5MG/10ML VIAL IV SCH (01:19)
[2018-07-31] MEDS: MEROPENEM 1,000 MG in SODIUM CHLORIDE 0.9% 100 ML IV SCH ×2 (02:19→15:31)
[2018-07-31] MEDS: FENTANYL CITRATE/PF 1,000 MCG in SODIUM CHLORIDE 0.9% 80 ML IV PRN ×3 (04:31→23:31)
[2018-07-31] MEDS: AMIODARONE HCL 200 MG TABLET PO SCH ×3 (05:03→22:12)
[2018-07-31] MEDS: ACETAMINOPHEN 325MG TABLET PO PRN (05:15)
[2018-07-31 05:31] LABS: BASOPHILS % 0.3 % (0.0-2.0); EOSINOPHILS % 1.3 % (0.0-5.0); HEMOGLOBIN. 10.5 g/dL (14.0-18.0); LYMPHOCYTES % 13.6 % (20.0-50.0); MEAN CORPUSCULAR HEMOGLOBIN 29.3 pg (28.0-32.0); MEAN CORPUSCULAR VOLUME 89.6 fL (80.0-94.0); MEAN PLATELET VOLUME 10.4 fl (7.4-10.4); MONOCYTES % 4.5 % (2.0-8.0); NEUTROPHILS % 80.3 % (40.0-76.0); PLATELET 121 x1000/uL (130-400); RED BLOOD CELL COUNT 3.57 mill/uL (4.7-6.1); RED CELL DISTRIBUTION WIDTH 16.8 % (11.6-14.6)
[2018-07-31] MEDS: CLONAZEPAM 0.5MG TABLET PO SCH ×3 (05:56→22:11)
[2018-07-31] MEDS: BLOOD SUGAR DIAGNOSTIC STRIP TEST SCH ×4 (05:57→18:00)
[2018-07-31] MEDS: INSULIN LISPRO 100 UNITS/ML SUBCUT SCH ×4 (06:00→18:00)
[2018-07-31 08:16] LABS: BG CARBOXYHEMOGLOBIN 0.3 % (0.5-1.5); BG DEOXYHEMOGLOBIN 3.1 % (0.0-5.0); BG FRACTION INSPIRED OXYGEN 40; BG HCO3 ACT 28.5 mmol/L (22.0-26.0); BG METHEMOGLOBIN 0.1 % (0.0-1.5); BG OXYGEN SATURATION 96.9 % (92.0-98.5); BG OXYHEMOGLOBIN 96.5 % (94.0-97.0); BG PH 7.493 (7.350-7.450); BG PO2 92.6 mmHg (75.0-100.0); BG SAMPLE SITE LEFT BRACHIAL; BG TIDAL VOLUME(mL) 500 mL; BG TOTAL HEMOGLOBIN 11.2 g/dL (12.0-18.0); BG VENT MODE VENT - A/C; BG VENT RATE 30 set
[2018-07-31] MEDS: METOPROLOL TARTRATE 25MG TABLET PO SCH ×2 (08:41→21:00)
[2018-07-31] MEDS: MIDAZOLAM HCL 100 MG in DEXT 5% WATER 80 ML IV PRN (08:47)
[2018-07-31] MEDS: LEVETIRACETAM 500 MG in SODIUM CHLORIDE 0.9% 100 ML IV SCH ×2 (08:59→22:12)
[2018-07-31] MEDS: PANTOPRAZOLE SODIUM 40 MG/VIAL IV SCH (09:00)
[2018-07-31] MEDS: DOCUSATE SODIUM SUGAR FREE 100MG/10ML UDC NG SCH (09:00)
[2018-07-31] MEDS: THIAMINE HCL 100MG TABLET PO SCH ×2 (09:00→17:59)
[2018-07-31] MEDS: BUMETANIDE 1MG/4ML VIAL IV SCH ×2 (10:29→17:59)
[2018-07-31] MEDS: NOREPINEPHRINE 32 MG in DEXT 5% WATER 468 ML IV PRN (15:56)
[2018-07-31] MEDS: VANCOMYCIN 1,000 MG in DEXT 5% WATER 250 ML IV SCH (16:20)
[2018-07-31] MEDS: ACETAMINOPHEN 650MG SUPP PR PRN (20:00)
[2018-08-01] VITALS (79 sets, daily range): BP systolic 90–133; BP diastolic 35–69
[2018-08-01] MEDS: MIDAZOLAM HCL 100 MG in DEXT 5% WATER 80 ML IV PRN ×2 (00:35→09:59)
[2018-08-01] MEDS: BLOOD SUGAR DIAGNOSTIC STRIP TEST SCH ×3 (00:44→12:00)
[2018-08-01] MEDS: IPRATROPIUM BROMIDE (0.02%) 0.5MG/2.5ML NEB HHN SCH ×6 (00:56→20:22)
[2018-08-01] MEDS: ACETAMINOPHEN 325MG TABLET PO PRN ×2 (02:34→15:16)
[2018-08-01] MEDS: BUMETANIDE 1MG/4ML VIAL IV SCH ×3 (02:34→22:25)
[2018-08-01] MEDS: MEROPENEM 1,000 MG in SODIUM CHLORIDE 0.9% 100 ML IV SCH ×2 (02:35→15:22)
[2018-08-01 04:48] LABS: BASOPHILS % 0.2 % (0.0-2.0); EOSINOPHILS % 1.5 % (0.0-5.0); HEMATOCRIT. 32.7 % (42.0-52.0); HEMOGLOBIN. 10.4 g/dL (14.0-18.0); LYMPHOCYTES % 9.7 % (20.0-50.0); MEAN CORPUSCULAR HEMOGLOBIN 28.6 pg (28.0-32.0); MEAN CORPUSCULAR VOLUME 89.9 fL (80.0-94.0); MEAN PLATELET VOLUME 11.5 fl (7.4-10.4); MONOCYTES % 3.9 % (2.0-8.0); NEUTROPHILS % 84.7 % (40.0-76.0); PLATELET 122 x1000/uL (130-400); RED BLOOD CELL COUNT 3.64 mill/uL (4.7-6.1); RED CELL DISTRIBUTION WIDTH 16.9 % (11.6-14.6)
[2018-08-01] MEDS: CLONAZEPAM 0.5MG TABLET PO SCH ×3 (05:07→22:24)
[2018-08-01] MEDS: INSULIN LISPRO 100 UNITS/ML SUBCUT SCH ×3 (05:07→12:00)
[2018-08-01] MEDS: AMIODARONE HCL 200 MG TABLET PO SCH ×3 (05:07→22:24)
[2018-08-01] MEDS: DILTIAZEM HCL 5MG/ML 5ML VIAL IV PRN (05:23)
[2018-08-01 07:39] LABS: BG BASE EXCESS 6.2 mmol/L (-2.0-2.0); BG DEOXYHEMOGLOBIN 5.1 % (0.0-5.0); BG FRACTION INSPIRED OXYGEN 40; BG METHEMOGLOBIN 0.3 % (0.0-1.5); BG OXYGEN SATURATION 94.8 % (92.0-98.5); BG OXYHEMOGLOBIN 93.6 % (94.0-97.0); BG PCO2 50.2 mmHg (35.0-45.0); BG PH 7.422 (7.350-7.450); BG SAMPLE SITE RIGHT RADIAL; BG TIDAL VOLUME(mL) 500 mL; BG TOTAL HEMOGLOBIN 14.3 g/dL (12.0-18.0); BG VENT MODE VENT - A/C; BG VENT RATE 26 set
[2018-08-01] MEDS: METOPROLOL TARTRATE 25MG TABLET PO SCH ×2 (08:34→21:00)
[2018-08-01] MEDS: THIAMINE HCL 100MG TABLET PO SCH ×2 (08:42→18:00)
[2018-08-01] MEDS: PANTOPRAZOLE SODIUM 40 MG/VIAL IV SCH (08:42)
[2018-08-01] MEDS: NOREPINEPHRINE 32 MG in DEXT 5% WATER 468 ML IV PRN (08:45)
[2018-08-01] MEDS: LEVETIRACETAM 500 MG in SODIUM CHLORIDE 0.9% 100 ML IV SCH ×2 (08:51→22:24)
[2018-08-01] MEDS: DOCUSATE SODIUM SUGAR FREE 100MG/10ML UDC NG SCH (09:00)
[2018-08-01] MEDS: FENTANYL CITRATE/PF 1,000 MCG in SODIUM CHLORIDE 0.9% 80 ML IV PRN ×2 (10:00→21:25)
[2018-08-01] MEDS ORDERED: VANCOMYCIN 1 G PREMIX 200 ML IV SCH (16:00)
[2018-08-01] MEDS: RISPERIDONE 0.5MG TABLET PO SCH (22:24)
[2018-08-02] VITALS (91 sets, daily range): BP systolic 85–126; BP diastolic 37–62
[2018-08-02] MEDS: MIDAZOLAM HCL 100 MG in DEXT 5% WATER 80 ML IV PRN ×2 (00:02→10:10)
[2018-08-02] MEDS: DILTIAZEM HCL 5MG/ML 5ML VIAL IV PRN (00:03)
[2018-08-02] MEDS: IPRATROPIUM BROMIDE (0.02%) 0.5MG/2.5ML NEB HHN SCH ×6 (00:24→21:00)
[2018-08-02] MEDS: BLOOD SUGAR DIAGNOSTIC STRIP TEST SCH ×4 (00:32→17:00)
[2018-08-02] MEDS: MEROPENEM 1,000 MG in SODIUM CHLORIDE 0.9% 100 ML IV SCH ×2 (03:26→14:51)
[2018-08-02 05:19] LABS: BASOPHILS % 0.2 % (0.0-2.0); EOSINOPHILS % 1.2 % (0.0-5.0); HEMATOCRIT. 31.6 % (42.0-52.0); LYMPHOCYTES % 8.1 % (20.0-50.0); MEAN CORPUSCULAR HEMOGLOBIN 28.9 pg (28.0-32.0); MEAN CORPUSCULAR VOLUME 91.4 fL (80.0-94.0); MEAN PLATELET VOLUME 11.4 fl (7.4-10.4); NEUTROPHILS % 87.5 % (40.0-76.0); PLATELET 98 x1000/uL (130-400); RED BLOOD CELL COUNT 3.45 mill/uL (4.7-6.1); RED CELL DISTRIBUTION WIDTH 17.1 % (11.6-14.6)
[2018-08-02] MEDS: INSULIN LISPRO 100 UNITS/ML SUBCUT SCH ×4 (06:00→17:01)
[2018-08-02] MEDS: AMIODARONE HCL 200 MG TABLET PO SCH ×3 (07:01→21:25)
[2018-08-02] MEDS: CLONAZEPAM 0.5MG TABLET PO SCH ×3 (07:01→21:25)
[2018-08-02] MEDS: DOCUSATE SODIUM SUGAR FREE 100MG/10ML UDC NG SCH (08:46)
[2018-08-02] MEDS: PANTOPRAZOLE SODIUM 40 MG/VIAL IV SCH (08:46)
[2018-08-02] MEDS: RISPERIDONE 0.5MG TABLET PO SCH ×2 (08:46→21:25)
[2018-08-02] MEDS: BUMETANIDE 1MG/4ML VIAL IV SCH (08:46)
[2018-08-02] MEDS: THIAMINE HCL 100MG TABLET PO SCH ×2 (08:46→17:51)
[2018-08-02] MEDS: METOPROLOL TARTRATE 25MG TABLET PO SCH ×2 (08:46→21:00)
[2018-08-02 09:15] LABS: BG BASE EXCESS 9.4 mmol/L (-2.0-2.0); BG CARBOXYHEMOGLOBIN 0.4 % (0.5-1.5); BG DEOXYHEMOGLOBIN 6.5 % (0.0-5.0); BG FRACTION INSPIRED OXYGEN 40; BG HCO3 ACT 33.4 mmol/L (22.0-26.0); BG METHEMOGLOBIN 0.2 % (0.0-1.5); BG OXYGEN SATURATION 93.5 % (92.0-98.5); BG OXYHEMOGLOBIN 92.9 % (94.0-97.0); BG PCO2 43.3 mmHg (35.0-45.0); BG PH 7.505 (7.350-7.450); BG SAMPLE SITE RIGHT RADIAL; BG TIDAL VOLUME(mL) 500 mL; BG TOTAL HEMOGLOBIN 10.5 g/dL (12.0-18.0); BG VENT MODE VENT - A/C; BG VENT RATE 26 set
[2018-08-02] MEDS: NOREPINEPHRINE 32 MG in DEXT 5% WATER 468 ML IV PRN (09:20)
[2018-08-02] MEDS: LEVETIRACETAM 500 MG in SODIUM CHLORIDE 0.9% 100 ML IV SCH ×2 (09:20→21:24)
[2018-08-02] MEDS: FENTANYL CITRATE/PF 1,000 MCG in SODIUM CHLORIDE 0.9% 80 ML IV PRN (10:10)
[2018-08-02] MEDS ORDERED: LACTULOSE 20G/30ML UDC PO PRN (10:45)
[2018-08-02] MEDS ORDERED: DIGOXIN 500MCG/2ML AMP IV NR (11:01)
[2018-08-02] MEDS ORDERED: DOCUSATE SODIUM 250MG CAPSULE PO SCH (11:02)
[2018-08-02] MEDS ORDERED: LACTULOSE 20G/30ML UDC PO NR (11:02)
[2018-08-02] MEDS: MIDODRINE HCL 5MG TABLET PO SCH ×2 (11:56→17:51)
[2018-08-02] MEDS: VANCOMYCIN 1250MG in DEXTROSE 5% WATER 250ML IV SCH (14:51)
[2018-08-02] MEDS: ACETAMINOPHEN 325MG TABLET PO PRN (15:37)
[2018-08-03] VITALS (98 sets, daily range): BP systolic 87–141; BP diastolic 37–82
[2018-08-03] MEDS: MIDAZOLAM HCL 100 MG in DEXT 5% WATER 80 ML IV PRN ×2 (00:06→16:45)
[2018-08-03] MEDS: IPRATROPIUM/ALBUTEROL 0.5-3(2.5)MG/3ML NEB INH PRN (00:21)
[2018-08-03] MEDS: IPRATROPIUM BROMIDE (0.02%) 0.5MG/2.5ML NEB HHN SCH ×7 (00:36→23:46)
[2018-08-03] MEDS: MEROPENEM 1,000 MG in SODIUM CHLORIDE 0.9% 100 ML IV SCH ×3 (03:23→23:30)
[2018-08-03] MEDS: FENTANYL CITRATE/PF 1,000 MCG in SODIUM CHLORIDE 0.9% 80 ML IV PRN ×2 (03:24→21:39)
[2018-08-03 05:54] LABS: HEMATOCRIT. 25.5 % (42.0-52.0); HEMOGLOBIN. 9.7 g/dL (14.0-18.0); MEAN CORPUSCULAR HEMOGLOBIN 35.2 pg (28.0-32.0); MEAN CORPUSCULAR VOLUME 92.3 fL (80.0-94.0); RED BLOOD CELL COUNT 2.76 mill/uL (4.7-6.1); RED CELL DISTRIBUTION WIDTH 16.9 % (11.6-14.6)
[2018-08-03] MEDS: INSULIN LISPRO 100 UNITS/ML SUBCUT SCH ×5 (06:00→23:30)
[2018-08-03] MEDS: BLOOD SUGAR DIAGNOSTIC STRIP TEST SCH ×5 (06:46→23:30)
[2018-08-03] MEDS: AMIODARONE HCL 200 MG TABLET PO SCH ×3 (06:46→21:11)
[2018-08-03] MEDS: CLONAZEPAM 0.5MG TABLET PO SCH ×3 (06:46→21:11)
[2018-08-03 08:58] LABS: BG BASE EXCESS 10.3 mmol/L (-2.0-2.0); BG CARBOXYHEMOGLOBIN 0.5 % (0.5-1.5); BG DEOXYHEMOGLOBIN 4.2 % (0.0-5.0); BG FRACTION INSPIRED OXYGEN 40; BG HCO3 ACT 35.1 mmol/L (22.0-26.0); BG METHEMOGLOBIN 0.2 % (0.0-1.5); BG OXYGEN SATURATION 95.8 % (92.0-98.5); BG OXYHEMOGLOBIN 95.1 % (94.0-97.0); BG PCO2 48.3 mmHg (35.0-45.0); BG PH 7.479 (7.350-7.450); BG SAMPLE SITE RIGHT RADIAL; BG TIDAL VOLUME(mL) 500 mL; BG TOTAL HEMOGLOBIN 10.8 g/dL (12.0-18.0); BG VENT MODE VENT - A/C; BG VENT RATE 20 set
[2018-08-03] MEDS: METOPROLOL TARTRATE 25MG TABLET PO SCH ×2 (09:00→21:11)
[2018-08-03] MEDS: PANTOPRAZOLE SODIUM 40 MG/VIAL IV SCH (09:06)
[2018-08-03] MEDS: MIDODRINE HCL 5MG TABLET PO SCH ×3 (09:07→16:44)
[2018-08-03] MEDS: THIAMINE HCL 100MG TABLET PO SCH ×2 (09:07→16:44)
[2018-08-03] MEDS: DOCUSATE SODIUM SUGAR FREE 100MG/10ML UDC NG SCH (09:07)
[2018-08-03] MEDS: LEVETIRACETAM 500 MG in SODIUM CHLORIDE 0.9% 100 ML IV SCH ×2 (09:07→21:11)
[2018-08-03] MEDS: RISPERIDONE 0.5MG TABLET PO SCH ×2 (09:07→21:12)
[2018-08-03] MEDS: DILTIAZEM HCL 5MG/ML 5ML VIAL IV PRN (10:45)
[2018-08-03] MEDS ORDERED: DIGOXIN 500MCG/2ML AMP IV SCH (11:00)
[2018-08-03] MEDS: ACETAMINOPHEN 325MG TABLET PO PRN (11:05)
[2018-08-03 11:12] LABS: PLATELET ESTIMATE NORMAL
[2018-08-03 11:15] LABS: PLATELET 268 x1000/uL (130-400)
[2018-08-03] MEDS: NOREPINEPHRINE 32 MG in DEXT 5% WATER 468 ML IV PRN (14:28)
[2018-08-03] MEDS: VANCOMYCIN 1250MG in DEXTROSE 5% WATER 250ML IV SCH (15:00)
[2018-08-04] VITALS (92 sets, daily range): BP systolic 88–148; BP diastolic 38–64
[2018-08-04] MEDS: IPRATROPIUM BROMIDE (0.02%) 0.5MG/2.5ML NEB HHN SCH ×5 (03:57→20:21)
[2018-08-04 05:45] LABS: HEMOGLOBIN. 10.1 g/dL (14.0-18.0); MEAN CORPUSCULAR VOLUME 94.1 fL (80.0-94.0); PLATELET 120 x1000/uL (130-400); RED CELL DISTRIBUTION WIDTH 16.7 % (11.6-14.6)
[2018-08-04] MEDS: INSULIN LISPRO 100 UNITS/ML SUBCUT SCH ×3 (06:00→17:54)
[2018-08-04] MEDS: BLOOD SUGAR DIAGNOSTIC STRIP TEST SCH ×3 (06:04→17:54)
[2018-08-04] MEDS: AMIODARONE HCL 200 MG TABLET PO SCH ×4 (06:13→21:22)
[2018-08-04] MEDS: MEROPENEM 1,000 MG in SODIUM CHLORIDE 0.9% 100 ML IV SCH ×3 (06:13→23:21)
[2018-08-04] MEDS: CLONAZEPAM 0.5MG TABLET PO SCH ×3 (06:13→21:22)
[2018-08-04 08:16] LABS: BG BASE EXCESS 10.1 mmol/L (-2.0-2.0); BG CARBOXYHEMOGLOBIN 0.1 % (0.5-1.5); BG DEOXYHEMOGLOBIN 9.8 % (0.0-5.0); BG FRACTION INSPIRED OXYGEN 40; BG HCO3 ACT 34.2 mmol/L (22.0-26.0); BG METHEMOGLOBIN 0.1 % (0.0-1.5); BG OXYGEN SATURATION 90.2 % (92.0-98.5); BG PCO2 44.3 mmHg (35.0-45.0); BG PH 7.506 (7.350-7.450); BG PO2 59.2 mmHg (75.0-100.0); BG SAMPLE SITE RIGHT RADIAL; BG TIDAL VOLUME(mL) 500 mL; BG VENT MODE VENT - A/C; BG VENT RATE 16 set
[2018-08-04] MEDS: PANTOPRAZOLE SODIUM 40 MG/VIAL IV SCH (08:53)
[2018-08-04] MEDS: DOCUSATE SODIUM SUGAR FREE 100MG/10ML UDC NG SCH (08:53)
[2018-08-04] MEDS: METOPROLOL TARTRATE 25MG TABLET PO SCH ×2 (08:54→21:00)
[2018-08-04] MEDS: MIDODRINE HCL 5MG TABLET PO SCH ×3 (08:54→17:36)
[2018-08-04] MEDS: THIAMINE HCL 100MG TABLET PO SCH ×2 (08:54→17:36)
[2018-08-04] MEDS: RISPERIDONE 0.5MG TABLET PO SCH ×2 (08:54→21:21)
[2018-08-04] MEDS: LEVETIRACETAM 500 MG in SODIUM CHLORIDE 0.9% 100 ML IV SCH ×2 (08:57→21:21)
[2018-08-04 09:25] LABS: PLATELET ESTIMATE NORMAL
[2018-08-04] MEDS: MIDAZOLAM HCL 100 MG in DEXT 5% WATER 80 ML IV PRN (11:19)
[2018-08-04] MEDS: VANCOMYCIN 1250MG in DEXTROSE 5% WATER 250ML IV SCH (15:58)
[2018-08-04] MEDS: ACETAMINOPHEN 650MG SUPP PR PRN (15:58)
[2018-08-04] MEDS: DIGOXIN 125MCG TABLET PO SCH (17:36)
[2018-08-04] MEDS: FENTANYL CITRATE/PF 1,000 MCG in SODIUM CHLORIDE 0.9% 80 ML IV PRN (17:37)
[2018-08-05] VITALS (90 sets, daily range): BP systolic 96–147; BP diastolic 37–66
[2018-08-05] MEDS: IPRATROPIUM BROMIDE (0.02%) 0.5MG/2.5ML NEB HHN SCH ×3 (00:14→08:17)
[2018-08-05] MEDS: BLOOD SUGAR DIAGNOSTIC STRIP TEST SCH ×5 (00:17→23:30)
[2018-08-05] MEDS: IPRATROPIUM/ALBUTEROL 0.5-3(2.5)MG/3ML NEB INH PRN (04:15)
[2018-08-05] MEDS: MIDAZOLAM HCL 100 MG in DEXT 5% WATER 80 ML IV PRN (05:46)
[2018-08-05] MEDS: INSULIN LISPRO 100 UNITS/ML SUBCUT SCH ×5 (05:47→23:30)
[2018-08-05 05:49] LABS: BASOPHILS % 0.2 % (0.0-2.0); EOSINOPHILS % 0.8 % (0.0-5.0); HEMATOCRIT. 32.7 % (42.0-52.0); HEMOGLOBIN. 10.1 g/dL (14.0-18.0); LYMPHOCYTES % 7.4 % (20.0-50.0); MEAN CORPUSCULAR HEMOGLOBIN 29.3 pg (28.0-32.0); MEAN CORPUSCULAR VOLUME 94.8 fL (80.0-94.0); MEAN PLATELET VOLUME 12.5 fl (7.4-10.4); MONOCYTES % 5.6 % (2.0-8.0); PLATELET 141 x1000/uL (130-400); RED BLOOD CELL COUNT 3.45 mill/uL (4.7-6.1); RED CELL DISTRIBUTION WIDTH 16.4 % (11.6-14.6)
[2018-08-05] MEDS: AMIODARONE HCL 200 MG TABLET PO SCH ×3 (06:05→21:43)
[2018-08-05] MEDS: MEROPENEM 1,000 MG in SODIUM CHLORIDE 0.9% 100 ML IV SCH ×3 (06:06→22:07)
[2018-08-05 06:24] LABS: DIGOXIN 1.9 ng/mL (0.9-2.0)
[2018-08-05 08:08] LABS: BG BASE EXCESS 7.5 mmol/L (-2.0-2.0); BG CARBOXYHEMOGLOBIN 0.4 % (0.5-1.5); BG DEOXYHEMOGLOBIN 18.3 % (0.0-5.0); BG FRACTION INSPIRED OXYGEN 40; BG METHEMOGLOBIN 0.1 % (0.0-1.5); BG OXYGEN SATURATION 81.6 % (92.0-98.5); BG OXYHEMOGLOBIN 81.2 % (94.0-97.0); BG PCO2 51.5 mmHg (35.0-45.0); BG PH 7.425 (7.350-7.450); BG PO2 49.4 mmHg (75.0-100.0); BG SAMPLE SITE RIGHT RADIAL; BG TIDAL VOLUME(mL) 500 mL; BG VENT MODE VENT - A/C; BG VENT RATE 16 set
[2018-08-05] MEDS: NOREPINEPHRINE 32 MG in DEXT 5% WATER 468 ML IV PRN (08:25)
[2018-08-05] MEDS: METOPROLOL TARTRATE 25MG TABLET PO SCH ×2 (09:00→20:32)
[2018-08-05] MEDS: RISPERIDONE 0.5MG TABLET PO SCH ×2 (10:01→20:31)
[2018-08-05] MEDS: MIDODRINE HCL 5MG TABLET PO SCH ×3 (10:01→16:41)
[2018-08-05] MEDS: THIAMINE HCL 100MG TABLET PO SCH ×2 (10:01→17:07)
[2018-08-05] MEDS: DOCUSATE SODIUM SUGAR FREE 100MG/10ML UDC NG SCH (10:01)
[2018-08-05] MEDS: PANTOPRAZOLE SODIUM 40 MG/VIAL IV SCH (10:01)
[2018-08-05] MEDS: LEVETIRACETAM 500 MG in SODIUM CHLORIDE 0.9% 100 ML IV SCH ×2 (10:02→20:54)
[2018-08-05] MEDS ORDERED: MIDAZOLAM HCL 50 MG in DEXTROSE 5% WATER 40 ML IV PRN (11:00)
[2018-08-05] MEDS: FENTANYL CITRATE/PF 1,000 MCG in SODIUM CHLORIDE 0.9% 80 ML IV PRN (11:47)
[2018-08-05] MEDS: IPRATROPIUM/ALBUTEROL 0.5-3(2.5)MG/3ML NEB HHN SCH ×3 (16:00→20:03)
[2018-08-05] MEDS: ACETYLCYSTEINE 100MG/ML 10% VIAL 4ML INH SCH (16:13)
[2018-08-05] MEDS: VANCOMYCIN 1250MG in DEXTROSE 5% WATER 250ML IV SCH (16:44)
[2018-08-05] MEDS: DIGOXIN 125MCG TABLET PO SCH (17:07)
[2018-08-05] MEDS: ACETAMINOPHEN 325MG TABLET PO PRN (23:44)
[2018-08-06] VITALS (96 sets, daily range): BP systolic 92–128; BP diastolic 35–55
[2018-08-06] MEDS: ACETYLCYSTEINE 100MG/ML 10% VIAL 4ML INH SCH ×4 (00:03→23:44)
[2018-08-06] MEDS: IPRATROPIUM/ALBUTEROL 0.5-3(2.5)MG/3ML NEB HHN SCH ×7 (00:03→23:45)
[2018-08-06] MEDS: INSULIN LISPRO 100 UNITS/ML SUBCUT SCH ×4 (06:00→23:16)
[2018-08-06 06:01] LABS: HEMATOCRIT. 29.3 % (42.0-52.0); HEMOGLOBIN. 9.1 g/dL (14.0-18.0); MEAN CORPUSCULAR HEMOGLOBIN 29.5 pg (28.0-32.0); MEAN CORPUSCULAR VOLUME 95.2 fL (80.0-94.0); MEAN PLATELET VOLUME 12.5 fl (7.4-10.4); PLATELET 129 x1000/uL (130-400); RED BLOOD CELL COUNT 3.07 mill/uL (4.7-6.1); RED CELL DISTRIBUTION WIDTH 16.6 % (11.6-14.6)
[2018-08-06] MEDS: AMIODARONE HCL 200 MG TABLET PO SCH ×3 (06:40→23:06)
[2018-08-06] MEDS: BLOOD SUGAR DIAGNOSTIC STRIP TEST SCH ×4 (06:52→23:16)
[2018-08-06 08:02] LABS: BG BASE EXCESS 4.7 mmol/L (-2.0-2.0); BG CARBOXYHEMOGLOBIN 0.3 % (0.5-1.5); BG DEOXYHEMOGLOBIN 12.4 % (0.0-5.0); BG FRACTION INSPIRED OXYGEN 60; BG HCO3 ACT 31.5 mmol/L (22.0-26.0); BG METHEMOGLOBIN 0.2 % (0.0-1.5); BG OXYGEN SATURATION 87.5 % (92.0-98.5); BG OXYHEMOGLOBIN 87.1 % (94.0-97.0); BG PH 7.345 (7.350-7.450); BG PO2 59.9 mmHg (75.0-100.0); BG SAMPLE SITE RIGHT RADIAL; BG TIDAL VOLUME(mL) 500 mL; BG TOTAL HEMOGLOBIN 9.9 g/dL (12.0-18.0); BG VENT MODE VENT - A/C; BG VENT RATE 16 set
[2018-08-06] MEDS: DOCUSATE SODIUM SUGAR FREE 100MG/10ML UDC NG SCH (09:00)
[2018-08-06] MEDS: METOPROLOL TARTRATE 25MG TABLET PO SCH ×2 (09:00→21:00)
[2018-08-06] MEDS: LEVETIRACETAM 500 MG in SODIUM CHLORIDE 0.9% 100 ML IV SCH ×2 (09:46→21:05)
[2018-08-06] MEDS: PANTOPRAZOLE SODIUM 40 MG/VIAL IV SCH (09:46)
[2018-08-06] MEDS: MIDODRINE HCL 5MG TABLET PO SCH ×3 (09:47→17:04)
[2018-08-06] MEDS: THIAMINE HCL 100MG TABLET PO SCH ×2 (09:47→17:05)
[2018-08-06] MEDS: DOCUSATE SODIUM 100MG CAPSULE PO PRN (09:47)
[2018-08-06] MEDS: MEROPENEM 1,000 MG in SODIUM CHLORIDE 0.9% 100 ML IV SCH ×3 (09:47→22:21)
[2018-08-06] MEDS: RISPERIDONE 0.5MG TABLET PO SCH (09:47)
[2018-08-06] MEDS: FENTANYL CITRATE/PF 500 MCG in SODIUM CHLORIDE 0.9% 40 ML IV PRN (10:00)
[2018-08-06 10:29] LABS: PLATELET ESTIMATE NSD
[2018-08-06] MEDS: ACETAMINOPHEN 325MG TABLET PO PRN (12:44)
[2018-08-06] MEDS: VANCOMYCIN 1250MG in DEXTROSE 5% WATER 250ML IV SCH (16:58)
[2018-08-06] MEDS: DIGOXIN 125MCG TABLET PO SCH (17:05)
[2018-08-07] VITALS (88 sets, daily range): BP systolic 91–128; BP diastolic 33–55
[2018-08-07] MEDS: IPRATROPIUM/ALBUTEROL 0.5-3(2.5)MG/3ML NEB HHN SCH ×5 (03:24→20:11)
[2018-08-07] MEDS: AMIODARONE HCL 200 MG TABLET PO SCH ×3 (05:13→22:00)
[2018-08-07] MEDS: BLOOD SUGAR DIAGNOSTIC STRIP TEST SCH ×2 (05:47→17:26)
[2018-08-07] MEDS: INSULIN LISPRO 100 UNITS/ML SUBCUT SCH ×2 (05:47→17:35)
[2018-08-07 06:29] LABS: HEMATOCRIT. 29.1 % (42.0-52.0); MEAN CORPUSCULAR HEMOGLOBIN 29.6 pg (28.0-32.0); MEAN CORPUSCULAR VOLUME 95.5 fL (80.0-94.0); MEAN PLATELET VOLUME 12.1 fl (7.4-10.4); PLATELET 141 x1000/uL (130-400); RED BLOOD CELL COUNT 3.05 mill/uL (4.7-6.1); RED CELL DISTRIBUTION WIDTH 16.8 % (11.6-14.6)
[2018-08-07] MEDS: FENTANYL CITRATE/PF 500 MCG in SODIUM CHLORIDE 0.9% 40 ML IV PRN ×2 (06:53→17:28)
[2018-08-07 07:31] LABS: PLATELET ESTIMATE NORMAL
[2018-08-07 07:38] LABS: BG BASE EXCESS 9.5 mmol/L (-2.0-2.0); BG CARBOXYHEMOGLOBIN 0.3 % (0.5-1.5); BG FRACTION INSPIRED OXYGEN 70; BG HCO3 ACT 35.2 mmol/L (22.0-26.0); BG METHEMOGLOBIN 0.3 % (0.0-1.5); BG OXYHEMOGLOBIN 91.4 % (94.0-97.0); BG PCO2 54.8 mmHg (35.0-45.0); BG PH 7.426 (7.350-7.450); BG PO2 64.4 mmHg (75.0-100.0); BG SAMPLE SITE RIGHT RADIAL; BG TIDAL VOLUME(mL) 500 mL; BG TOTAL HEMOGLOBIN 9.6 g/dL (12.0-18.0); BG VENT MODE VENT - A/C; BG VENT RATE 16 set
[2018-08-07] MEDS: ACETYLCYSTEINE 100MG/ML 10% VIAL 4ML INH SCH ×2 (07:58→15:35)
[2018-08-07] MEDS: MEROPENEM 1,000 MG in SODIUM CHLORIDE 0.9% 100 ML IV SCH ×3 (08:56→23:36)
[2018-08-07] MEDS: METOPROLOL TARTRATE 25MG TABLET PO SCH ×2 (09:00→21:03)
[2018-08-07] MEDS: LEVETIRACETAM 500 MG in SODIUM CHLORIDE 0.9% 100 ML IV SCH ×2 (10:50→21:38)
[2018-08-07] MEDS: PANTOPRAZOLE SODIUM 40 MG/VIAL IV SCH (10:50)
[2018-08-07] MEDS: DOCUSATE SODIUM SUGAR FREE 100MG/10ML UDC NG SCH (10:50)
[2018-08-07] MEDS: MIDODRINE HCL 5MG TABLET PO SCH ×3 (10:51→17:35)
[2018-08-07] MEDS: THIAMINE HCL 100MG TABLET PO SCH ×2 (10:51→17:27)
[2018-08-07] MEDS: VANCOMYCIN 1250MG in DEXTROSE 5% WATER 250ML IV SCH (15:51)
[2018-08-07] MEDS: DIGOXIN 125MCG TABLET PO SCH (17:27)
[2018-08-07] MEDS: ACETAMINOPHEN 325MG TABLET PO PRN (18:00)
[2018-08-08] VITALS (90 sets, daily range): BP systolic 93–131; BP diastolic 37–53
[2018-08-08] MEDS: IPRATROPIUM/ALBUTEROL 0.5-3(2.5)MG/3ML NEB HHN SCH ×5 (00:05→20:14)
[2018-08-08] MEDS: ACETYLCYSTEINE 100MG/ML 10% VIAL 4ML INH SCH ×3 (00:05→16:30)
[2018-08-08] MEDS: NOREPINEPHRINE 32 MG in DEXT 5% WATER 468 ML IV PRN (00:30)
[2018-08-08] MEDS: AMIODARONE HCL 200 MG TABLET PO SCH ×3 (04:59→21:27)
[2018-08-08 05:05] LABS: BASOPHILS % 0.1 % (0.0-2.0); EOSINOPHILS % 0.1 % (0.0-5.0); HEMATOCRIT. 30.4 % (42.0-52.0); HEMOGLOBIN. 9.3 g/dL (14.0-18.0); MEAN CORPUSCULAR VOLUME 97.8 fL (80.0-94.0); MEAN PLATELET VOLUME 12.8 fl (7.4-10.4); MONOCYTES % 5.4 % (2.0-8.0); NEUTROPHILS % 88.4 % (40.0-76.0); PLATELET 178 x1000/uL (130-400); RED BLOOD CELL COUNT 3.11 mill/uL (4.7-6.1); RED CELL DISTRIBUTION WIDTH 16.6 % (11.6-14.6)
[2018-08-08] MEDS: BLOOD SUGAR DIAGNOSTIC STRIP TEST SCH ×2 (05:58→18:03)
[2018-08-08] MEDS: INSULIN LISPRO 100 UNITS/ML SUBCUT SCH ×2 (05:58→18:00)
[2018-08-08] MEDS: MEROPENEM 1,000 MG in SODIUM CHLORIDE 0.9% 100 ML IV SCH ×3 (06:09→23:58)
[2018-08-08] MEDS: THIAMINE HCL 100MG TABLET PO SCH ×2 (08:45→18:01)
[2018-08-08] MEDS: DOCUSATE SODIUM SUGAR FREE 100MG/10ML UDC NG SCH (08:45)
[2018-08-08] MEDS: PANTOPRAZOLE SODIUM 40 MG/VIAL IV SCH (08:45)
[2018-08-08] MEDS: MIDODRINE HCL 5MG TABLET PO SCH ×3 (08:46→18:02)
[2018-08-08] MEDS: METOPROLOL TARTRATE 25MG TABLET PO SCH ×2 (08:46→21:00)
[2018-08-08] MEDS: FENTANYL CITRATE/PF 500 MCG in SODIUM CHLORIDE 0.9% 40 ML IV PRN (08:47)
[2018-08-08 08:56] LABS: BG BASE EXCESS 0.5 mmol/L (-2.0-2.0); BG CARBOXYHEMOGLOBIN 0.4 % (0.5-1.5); BG DEOXYHEMOGLOBIN 8.5 % (0.0-5.0); BG FRACTION INSPIRED OXYGEN 80; BG HCO3 ACT 28.9 mmol/L (22.0-26.0); BG METHEMOGLOBIN 0.4 % (0.0-1.5); BG OXYGEN SATURATION 91.4 % (92.0-98.5); BG OXYHEMOGLOBIN 90.7 % (94.0-97.0); BG PCO2 67.8 mmHg (35.0-45.0); BG PH 7.247 (7.350-7.450); BG PO2 72.6 mmHg (75.0-100.0); BG SAMPLE SITE RIGHT RADIAL; BG TIDAL VOLUME(mL) 500 mL; BG TOTAL HEMOGLOBIN 10.4 g/dL (12.0-18.0); BG VENT MODE VENT - A/C; BG VENT RATE 16 set
[2018-08-08] MEDS: LEVETIRACETAM 500 MG in SODIUM CHLORIDE 0.9% 100 ML IV SCH ×2 (09:48→21:27)
[2018-08-08] MEDS: DIGOXIN 125MCG TABLET PO SCH (18:00)
[2018-08-09] VITALS (81 sets, daily range): BP systolic 96–128; BP diastolic 36–54
[2018-08-09] MEDS: ACETYLCYSTEINE 100MG/ML 10% VIAL 4ML INH SCH ×3 (00:16→15:54)
[2018-08-09] MEDS: IPRATROPIUM/ALBUTEROL 0.5-3(2.5)MG/3ML NEB HHN SCH ×6 (00:16→20:23)
[2018-08-09] MEDS ORDERED: FUROSEMIDE 40MG/4ML VIAL IVP NR (01:00)
[2018-08-09] MEDS: FENTANYL CITRATE/PF 500 MCG in SODIUM CHLORIDE 0.9% 40 ML IV PRN ×2 (02:18→12:41)
[2018-08-09] MEDS: INSULIN LISPRO 100 UNITS/ML SUBCUT SCH ×2 (06:00→18:00)
[2018-08-09 06:29] LABS: HEMATOCRIT. 32.1 % (42.0-52.0); HEMOGLOBIN. 9.9 g/dL (14.0-18.0); MEAN CORPUSCULAR HEMOGLOBIN 30.2 pg (28.0-32.0); MEAN CORPUSCULAR VOLUME 98.1 fL (80.0-94.0); MEAN PLATELET VOLUME 13.4 fl (7.4-10.4); PLATELET 174 x1000/uL (130-400); RED BLOOD CELL COUNT 3.27 mill/uL (4.7-6.1); RED CELL DISTRIBUTION WIDTH 16.9 % (11.6-14.6)
[2018-08-09] MEDS: BLOOD SUGAR DIAGNOSTIC STRIP TEST SCH ×2 (06:49→18:00)
[2018-08-09] MEDS: MEROPENEM 1,000 MG in SODIUM CHLORIDE 0.9% 100 ML IV SCH ×2 (06:51→14:33)
[2018-08-09 07:16] LABS: ATYPICAL LYMPHOCYTES 1
[2018-08-09 07:17] LABS: PLATELET ESTIMATE NORMAL
[2018-08-09] MEDS ORDERED: FUROSEMIDE 100MG/10ML VIAL IVP SCH (08:15)
[2018-08-09] MEDS: METOPROLOL TARTRATE 25MG TABLET PO SCH ×2 (09:00→21:00)
[2018-08-09] MEDS: LEVETIRACETAM 500 MG in SODIUM CHLORIDE 0.9% 100 ML IV SCH ×2 (09:25→21:42)
[2018-08-09] MEDS: DOCUSATE SODIUM SUGAR FREE 100MG/10ML UDC NG SCH (09:25)
[2018-08-09] MEDS: PANTOPRAZOLE SODIUM 40 MG/VIAL IV SCH (09:25)
[2018-08-09] MEDS: MIDODRINE HCL 5MG TABLET PO SCH ×3 (09:26→16:35)
[2018-08-09] MEDS: THIAMINE HCL 100MG TABLET PO SCH ×2 (09:26→16:35)
[2018-08-09] MEDS: AMIODARONE HCL 200 MG TABLET PO SCH ×2 (09:26→21:00)
[2018-08-09] MEDS ORDERED: SODIUM POLYSTYRENE SULFONATE 15 G/60 ML BOT PO SCH (10:00)
[2018-08-09 12:43] LABS: BG BASE EXCESS 0.2 mmol/L (-2.0-2.0); BG CARBOXYHEMOGLOBIN 0.2 % (0.5-1.5); BG DEOXYHEMOGLOBIN 10.3 % (0.0-5.0); BG HCO3 ACT 27.7 mmol/L (22.0-26.0); BG METHEMOGLOBIN 0.5 % (0.0-1.5); BG OXYGEN SATURATION 89.6 % (92.0-98.5); BG PCO2 60.1 mmHg (35.0-45.0); BG PH 7.281 (7.350-7.450); BG PO2 66.4 mmHg (75.0-100.0); BG SAMPLE SITE RIGHT RADIAL; BG TIDAL VOLUME(mL) 500 mL; BG TOTAL HEMOGLOBIN 10.3 g/dL (12.0-18.0); BG VENT MODE VENT - A/C; BG VENT RATE 24 set
[2018-08-09] MEDS: FUROSEMIDE 100MG/10ML VIAL IVP SCH ×2 (13:16→16:35)
[2018-08-09] MEDS: DIGOXIN 125MCG TABLET PO SCH (18:00)
[2018-08-10] VITALS (12 sets, daily range): BP systolic 96–112; BP diastolic 32–47
[2018-08-10] MEDS: MEROPENEM 1,000 MG in SODIUM CHLORIDE 0.9% 100 ML IV SCH ×2 (00:13→13:06)
[2018-08-10] MEDS: IPRATROPIUM/ALBUTEROL 0.5-3(2.5)MG/3ML NEB HHN SCH ×5 (00:30→20:29)
[2018-08-10] MEDS: ACETYLCYSTEINE 100MG/ML 10% VIAL 4ML INH SCH ×2 (00:30→08:13)
[2018-08-10] MEDS: ACETAMINOPHEN 325MG TABLET PO PRN ×2 (04:40→18:22)
[2018-08-10 07:49] LABS: HEMATOCRIT. 27.4 % (42.0-52.0); HEMOGLOBIN. 8.6 g/dL (14.0-18.0); MEAN CORPUSCULAR HEMOGLOBIN 30.5 pg (28.0-32.0); MEAN CORPUSCULAR VOLUME 97.8 fL (80.0-94.0); MEAN PLATELET VOLUME 12.9 fl (7.4-10.4); PLATELET 110 x1000/uL (130-400); RED CELL DISTRIBUTION WIDTH 16.6 % (11.6-14.6)
[2018-08-10] MEDS: FUROSEMIDE 100MG/10ML VIAL IVP SCH ×3 (09:00→17:00)
[2018-08-10] MEDS: METOPROLOL TARTRATE 25MG TABLET PO SCH ×2 (09:00→21:00)
[2018-08-10] MEDS: LEVETIRACETAM 500 MG in SODIUM CHLORIDE 0.9% 100 ML IV SCH ×2 (09:21→21:37)
[2018-08-10] MEDS: AMIODARONE HCL 200 MG TABLET PO SCH ×2 (09:22→21:37)
[2018-08-10] MEDS: MIDODRINE HCL 5MG TABLET PO SCH ×3 (09:22→17:29)
[2018-08-10] MEDS: THIAMINE HCL 100MG TABLET PO SCH ×2 (09:23→17:29)
[2018-08-10] MEDS: PANTOPRAZOLE SODIUM 40 MG/VIAL IV SCH (09:23)
[2018-08-10] MEDS: DOCUSATE SODIUM SUGAR FREE 100MG/10ML UDC NG SCH (09:23)
[2018-08-10 13:21] LABS: PLATELET ESTIMATE DECREASED
[2018-08-10] MEDS: INSULIN LISPRO 100 UNITS/ML SUBCUT SCH (17:21)
[2018-08-10] MEDS: BLOOD SUGAR DIAGNOSTIC STRIP TEST SCH (17:21)
[2018-08-10] MEDS: DIGOXIN 125MCG TABLET PO SCH (17:28)
[2018-08-11] VITALS (12 sets, daily range): BP systolic 90–108; BP diastolic 32–44
[2018-08-11] MEDS: IPRATROPIUM/ALBUTEROL 0.5-3(2.5)MG/3ML NEB HHN SCH ×6 (00:19→21:08)
[2018-08-11 06:54] LABS: HEMATOCRIT. 26.7 % (42.0-52.0); HEMOGLOBIN. 8.6 g/dL (14.0-18.0); MEAN CORPUSCULAR HEMOGLOBIN 31.3 pg (28.0-32.0); MEAN PLATELET VOLUME 11.9 fl (7.4-10.4); PLATELET 100 x1000/uL (130-400); RED BLOOD CELL COUNT 2.76 mill/uL (4.7-6.1); RED CELL DISTRIBUTION WIDTH 16.5 % (11.6-14.6)
[2018-08-11] MEDS: ACETYLCYSTEINE 100MG/ML 10% VIAL 4ML INH SCH (08:22)
[2018-08-11] MEDS: AMIODARONE HCL 200 MG TABLET PO SCH ×2 (08:54→21:18)
[2018-08-11] MEDS: LEVETIRACETAM 500 MG in SODIUM CHLORIDE 0.9% 100 ML IV SCH ×2 (08:54→21:18)
[2018-08-11] MEDS: MIDODRINE HCL 5MG TABLET PO SCH ×3 (08:55→17:46)
[2018-08-11] MEDS: THIAMINE HCL 100MG TABLET PO SCH ×2 (08:55→17:46)
[2018-08-11] MEDS: PANTOPRAZOLE SODIUM 40 MG/VIAL IV SCH (08:55)
[2018-08-11] MEDS: FUROSEMIDE 100MG/10ML VIAL IVP SCH (09:00)
[2018-08-11] MEDS: DOCUSATE SODIUM SUGAR FREE 100MG/10ML UDC NG SCH (09:00)
[2018-08-11] MEDS: METOPROLOL TARTRATE 25MG TABLET PO SCH ×2 (09:00→21:00)
[2018-08-11] MEDS ORDERED: VANCOMYCIN 1 G PREMIX 200 ML IV SCH (10:00)
[2018-08-11] MEDS: ACETAMINOPHEN 325MG TABLET PO PRN (12:25)
[2018-08-11 16:34] LABS: PLATELET ESTIMATE DECREASED
[2018-08-11] MEDS: DIGOXIN 125MCG TABLET PO SCH (17:46)
[2018-08-11] MEDS: INSULIN LISPRO 100 UNITS/ML SUBCUT SCH (18:00)
[2018-08-11] MEDS: BLOOD SUGAR DIAGNOSTIC STRIP TEST SCH (18:13)
[2018-08-12] VITALS (12 sets, daily range): BP systolic 17–123; BP diastolic 35–70
[2018-08-12] MEDS: ACETAMINOPHEN 325MG TABLET PO PRN (00:58)
[2018-08-12] MEDS: IPRATROPIUM/ALBUTEROL 0.5-3(2.5)MG/3ML NEB HHN SCH ×6 (01:07→20:54)
[2018-08-12] MEDS: BLOOD SUGAR DIAGNOSTIC STRIP TEST SCH ×2 (05:13→17:04)
[2018-08-12] MEDS: INSULIN LISPRO 100 UNITS/ML SUBCUT SCH ×2 (05:15→17:04)
[2018-08-12 07:00] LABS: HEMATOCRIT. 29.9 % (42.0-52.0); HEMOGLOBIN. 9.5 g/dL (14.0-18.0); INR 1.5; MEAN CORPUSCULAR HEMOGLOBIN 31.3 pg (28.0-32.0); MEAN CORPUSCULAR VOLUME 98.6 fL (80.0-94.0); MEAN PLATELET VOLUME 12.4 fl (7.4-10.4); PARTIAL THROMBOPLASTIN TIME 31.7 sec (23.4-31.0); PLATELET 103 x1000/uL (130-400); PROTHROMBIN TIME 15.1 sec (9.6-11.0); RED BLOOD CELL COUNT 3.03 mill/uL (4.7-6.1); RED CELL DISTRIBUTION WIDTH 16.1 % (11.6-14.6)
[2018-08-12] MEDS: ACETAMINOPHEN 650MG SUPP PR PRN (08:04)
[2018-08-12 08:08] LABS: DIGOXIN 1.7 ng/mL (0.9-2.0)
[2018-08-12] MEDS: PANTOPRAZOLE SODIUM 40 MG/VIAL IV SCH (08:08)
[2018-08-12] MEDS: LEVETIRACETAM 500 MG in SODIUM CHLORIDE 0.9% 100 ML IV SCH ×2 (08:08→22:01)
[2018-08-12] MEDS: METOPROLOL TARTRATE 25MG TABLET PO SCH ×2 (09:00→21:00)
[2018-08-12] MEDS: DOCUSATE SODIUM SUGAR FREE 100MG/10ML UDC NG SCH (09:00)
[2018-08-12] MEDS: THIAMINE HCL 100MG TABLET PO SCH ×2 (09:11→17:01)
[2018-08-12] MEDS: MIDODRINE HCL 5MG TABLET PO SCH ×3 (09:11→17:01)
[2018-08-12] MEDS: AMIODARONE HCL 200 MG TABLET PO SCH ×2 (09:23→22:02)
[2018-08-12 15:40] LABS: PLATELET ESTIMATE DECREASED
[2018-08-12] MEDS: DIGOXIN 125MCG TABLET PO SCH (17:04)
[2018-08-12] MEDS ORDERED: ROCURONIUM BROMIDE 10MG/ML VIAL 5ML IV ONE (21:21)
[2018-08-12] MEDS ORDERED: MIDAZOLAM HCL 5 MG/5 ML VIAL ONE (21:21)
[2018-08-13] VITALS (12 sets, daily range): BP systolic 89–153; BP diastolic 31–56
[2018-08-13] MEDS: IPRATROPIUM/ALBUTEROL 0.5-3(2.5)MG/3ML NEB HHN SCH ×6 (00:02→20:58)
[2018-08-13] MEDS: ACETAMINOPHEN 325MG TABLET PO PRN (01:24)
[2018-08-13 06:59] LABS: HEMATOCRIT. 29.2 % (42.0-52.0); HEMOGLOBIN. 8.9 g/dL (14.0-18.0); MEAN CORPUSCULAR VOLUME 102.2 fL (80.0-94.0); MEAN PLATELET VOLUME 12.8 fl (7.4-10.4); PLATELET 86 x1000/uL (130-400); RED BLOOD CELL COUNT 2.86 mill/uL (4.7-6.1)
[2018-08-13] MEDS: INSULIN LISPRO 100 UNITS/ML SUBCUT SCH ×2 (07:00→17:43)
[2018-08-13] MEDS: BLOOD SUGAR DIAGNOSTIC STRIP TEST SCH ×2 (07:00→17:43)
[2018-08-13] MEDS: METOPROLOL TARTRATE 25MG TABLET PO SCH ×2 (09:00→21:55)
[2018-08-13] MEDS: DOCUSATE SODIUM SUGAR FREE 100MG/10ML UDC NG SCH (09:00)
[2018-08-13] MEDS: ACETAMINOPHEN 650MG SUPP PR PRN (09:28)
[2018-08-13] MEDS: MIDODRINE HCL 5MG TABLET PO SCH ×3 (09:33→17:43)
[2018-08-13] MEDS: PANTOPRAZOLE SODIUM 40 MG/VIAL IV SCH (09:33)
[2018-08-13] MEDS: THIAMINE HCL 100MG TABLET PO SCH ×2 (09:34→17:43)
[2018-08-13] MEDS: AMIODARONE HCL 200 MG TABLET PO SCH (09:44)
[2018-08-13] MEDS: LEVETIRACETAM 500 MG in SODIUM CHLORIDE 0.9% 100 ML IV SCH ×2 (10:04→21:54)
[2018-08-13 10:37] LABS: NUCLEATED RED BLOOD CELLS 3 /100 WBC
[2018-08-13 10:38] LABS: PLATELET ESTIMATE DECREASED
[2018-08-13] MEDS ORDERED: DEXT 5%/0.45% NACL 500ML 1,000 ML IV SCH (11:15)
[2018-08-13 11:17] LABS: BG BASE EXCESS 2.2 mmol/L (-2.0-2.0); BG CARBOXYHEMOGLOBIN 0.3 % (0.5-1.5); BG FRACTION INSPIRED OXYGEN 100; BG HCO3 ACT 27.8 mmol/L (22.0-26.0); BG METHEMOGLOBIN 0.4 % (0.0-1.5); BG OXYHEMOGLOBIN 97.3 % (94.0-97.0); BG PCO2 48.5 mmHg (35.0-45.0); BG PH 7.376 (7.350-7.450); BG PO2 127.5 mmHg (75.0-100.0); BG SAMPLE SITE RIGHT RADIAL; BG TIDAL VOLUME(mL) 500 mL; BG TOTAL HEMOGLOBIN 9.1 g/dL (12.0-18.0); BG VENT MODE VENT - A/C; BG VENT RATE 24 set
[2018-08-13] MEDS ORDERED: DEXT 5%/0.45% NACL 1000ML 1,000 ML IV SCH (11:45)
[2018-08-13] MEDS ORDERED: VANCOMYCIN 1 G PREMIX 200 ML IV NR (16:00)
[2018-08-14] VITALS: BP 133/52
[2018-08-14] MEDS: IPRATROPIUM/ALBUTEROL 0.5-3(2.5)MG/3ML NEB HHN SCH ×3 (00:35→08:01)
[2018-08-14 02:00] VITALS: BP 132/46
[2018-08-14 04:00] VITALS: BP 138/51
[2018-08-14] MEDS: INSULIN LISPRO 100 UNITS/ML SUBCUT SCH (05:55)
[2018-08-14] MEDS: BLOOD SUGAR DIAGNOSTIC STRIP TEST SCH (05:57)
[2018-08-14 06:15] VITALS: BP 143/39
[2018-08-14 06:32] LABS: HEMATOCRIT. 30.7 % (42.0-52.0); HEMOGLOBIN. 9.1 g/dL (14.0-18.0); MEAN CORPUSCULAR HEMOGLOBIN 31.3 pg (28.0-32.0); MEAN CORPUSCULAR VOLUME 106.2 fL (80.0-94.0); MEAN PLATELET VOLUME 13.3 fl (7.4-10.4); PLATELET 105 x1000/uL (130-400); RED BLOOD CELL COUNT 2.89 mill/uL (4.7-6.1); RED CELL DISTRIBUTION WIDTH 22.2 % (11.6-14.6)
[2018-08-14 08:00] VITALS: BP 116/46
[2018-08-14] MEDS ORDERED: AMIODARONE HCL 200 MG TABLET PO SCH (08:00)
[2018-08-14] MEDS: THIAMINE HCL 100MG TABLET PO SCH (09:00)
[2018-08-14] MEDS: LEVETIRACETAM 500 MG in SODIUM CHLORIDE 0.9% 100 ML IV SCH (09:00)
[2018-08-14] MEDS: METOPROLOL TARTRATE 25MG TABLET PO SCH (09:00)
[2018-08-14] MEDS: DOCUSATE SODIUM SUGAR FREE 100MG/10ML UDC NG SCH (09:00)
[2018-08-14] MEDS: MIDODRINE HCL 5MG TABLET PO SCH (09:28)
[2018-08-14] MEDS: PANTOPRAZOLE SODIUM 40 MG/VIAL IV SCH (09:28)
[2018-08-14 09:44] LABS: NUCLEATED RED BLOOD CELLS 1 /100 WBC
[2018-08-14 09:45] LABS: PLATELET ESTIMATE DECREASED
[2018-08-14 10:00] VITALS: BP 114/48
[2018-08-14] MEDS ORDERED: SODIUM POLYSTYRENE SULFONATE 15 G/60 ML BOT PO SCH (10:00)
== END 2018-08-14 11:55 | disposition expired | DRG 4 ==
LOC: ER 06:50 → 6WST 10:33 → ENRESERV 20:41 → CVICU 07-23 08:50 → 5EST 08-09 20:41
PROVIDERS: ADMIT Internal Medicine; ATTEND Internal Medicine
PROC: 5A1955Z Respiratory Ventilation, Greater than 96 Consecutive Hours (ICD-10-PCS; principal; 2018-07-23)
PROC: 0BH17EZ Insertion of Endotracheal Airway into Trachea, Via Natural or Artificial Opening (ICD-10-PCS; 2018-07-23)
PROC: 4A00X4Z Measurement of Central Nervous Electrical Activity, External Approach (ICD-10-PCS; 2018-07-24)
PROC: 02HV33Z Insertion of Infusion Device into Superior Vena Cava, Percutaneous Approach (ICD-10-PCS; 2018-07-24)
PROC: B548ZZA Ultrasonography of Superior Vena Cava, Guidance (ICD-10-PCS; 2018-07-24)
PROC: 0B110F4 Bypass Trachea to Cutaneous with Tracheostomy Device, Open Approach (ICD-10-PCS; 2018-08-12)
PROC: 0GBJ0ZZ Excision of Thyroid Gland Isthmus, Open Approach (ICD-10-PCS; 2018-08-12)
DX: T40.2X1A Poisoning by other opioids, accidental (unintentional), initial encounter (principal); I21.4 Non-ST elevation (NSTEMI) myocardial infarction; A41.01 Sepsis due to Methicillin susceptible Staphylococcus aureus; I76 Septic arterial embolism; G92 Toxic encephalopathy; I61.4 Nontraumatic intracerebral hemorrhage in cerebellum; I61.1 Nontraumatic intracerebral hemorrhage in hemisphere, cortical; J69.0 Pneumonitis due to inhalation of food and vomit; L89.159 Pressure ulcer of sacral region, unspecified stage; D68.9 Coagulation defect, unspecified; E11.36 Type 2 diabetes mellitus with diabetic cataract; I46.9 Cardiac arrest, cause unspecified; I48.0 Paroxysmal atrial fibrillation; I48.92 Unspecified atrial flutter; J80 Acute respiratory distress syndrome; E46 Unspecified protein-calorie malnutrition; N17.0 Acute kidney failure with tubular necrosis; R65.21 Severe sepsis with septic shock; E87.1 Hypo-osmolality and hyponatremia; I27.20 Pulmonary hypertension, unspecified; N39.0 Urinary tract infection, site not specified; B19.20 Unspecified viral hepatitis C without hepatic coma; D64.9 Anemia, unspecified; D69.6 Thrombocytopenia, unspecified; E86.9 Volume depletion, unspecified; E87.0 Hyperosmolality and hypernatremia; E87.2 Acidosis; E87.5 Hyperkalemia; E87.6 Hypokalemia; Z66 Do not resuscitate; Z78.1 Physical restraint status; Z86.73 Personal history of transient ischemic attack (TIA), and cerebral infarction without residual deficits; Y92.009 Unspecified place in unspecified non-institutional (private) residence as the place of occurrence of the external cause; Z99.11 Dependence on respirator [ventilator] status; R62.7 Adult failure to thrive; T40.1X1A Poisoning by heroin, accidental (unintentional), initial encounter; Z79.4 Long term (current) use of insulin; G40.909 Epilepsy, unspecified, not intractable, without status epilepticus; M47.812 Spondylosis without myelopathy or radiculopathy, cervical region; K74.60 Unspecified cirrhosis of liver; K59.00 Constipation, unspecified; G93.1 Anoxic brain damage, not elsewhere classified; I38 Endocarditis, valve unspecified; Z51.5 Encounter for palliative care; R40.2430 Glasgow coma scale score 3-8, unspecified time
CPT/HCPCS: 36415; 36569; 36600; 70553; 71045; 73560; 76937; 80048; 80061; 80076; 80162; 80202; 80305; 80320; 82375; 82550; 82553; 82607; 82728; 82746; 82805; 82962; 83036; 83540; 83550; 83605; 83735; 83880; 84100; 84134; 84145; 84443; 84478; 84484; 85027; 85651; 86705; 86709; 86803; 86850; 86900; 87070; 87077; 87340; 87389; 93005; 93306; 93880; 93923; 93970; 94003; 94640; 96365; 99285; A6261; A9577; C1725; C1769; C1887; C9113; J0282; J0360; J0690; J1160; J1200; J1650; J1815; J1940; J1953; J2060; J2185; J2250; J2270; J2405; J2543; J2704; J3010; J3370; J3480; J3490; J7030; J7040; J7050; J7060; J7608; J7620; A4315; G0480